=== PATIENT | female | born 1940 | race Caucasian/White ===

== ENCOUNTER 2017-03-21 00:50 | Inpatient (IN) ==
[2017-03-21] MEDS ORDERED: SODIUM CHLORIDE 0.9% 1,000 ML IV STA (01:37)
[2017-03-21] MEDS ORDERED: ALBUTEROL/IPRATROPIUM 3 ML NEB RESP TX STA (01:38)
[2017-03-21 02:39] LABS: Basophils # 0.1 10*3/uL (0.0-0.2); Basophils % 0.7 % (0.0-0.8); Hematocrit 22.6 VOL% (35.7-47.0); Immature Granulocytes % 0.9 %; Immature Granulocytes Absolute 0.08 #; Lymphocytes # 1.6 10*3/uL (1.4-4.0); Lymphocytes % 17.2 % (21.3-54.2); Mean Corpuscular HGB Conc 27.9 GM/DL (32-36); Mean Corpuscular Hemoglobin 19 PG (27-34); Mean Corpuscular Volume 66.7 FL (87-102); Mean Platelet Volume 9.4 FL (9.6-12.0); Monocytes # 1.3 10*3/uL (0.11-0.8); Monocytes % 14.5 % (1.7-12.7); NRBC # 0.34 10*3/uL; Neutrophils % 66.7 % (38.7-73.9); Platelet Count 625 T/CUMM (130-400); Red Blood Count 3.39 MC/CUMM (3.8-5.5); Red Cell Distribution Width 19.9 % (9.3-17.3)
[2017-03-21 02:50] LABS: INR 1.2; PT Patient Result 12.6 SECS; Partial Thromboplastin Time 26.8 SECS (0-40)
[2017-03-21 03:05] LABS: Hemoglobin 6.3 GM/DL (12.0-16.0)
[2017-03-21] MEDS ORDERED: SODIUM CHLORIDE 0.9% 1,000 ML IV PRN (03:05)
[2017-03-21 03:07] LABS: Albumin 3.3 G/DL (3.4-5.0); Bilirubin,Total 0.5 MG/DL (0.2-1.0); Calcium 8.4 MG/DL (8.5-10.1); Potassium 3.3 MMOL/L (3.5-5.1); Total Protein 7.5 G/DL (6.4-8.3)
[2017-03-21 03:09] LABS: Troponin I Only 0.11 NG/ML (0.00-0.045)
[2017-03-21] MEDS ORDERED: methylPREDNISolone SOD SUC 125 MG/2 ML VIAL IV STA (04:36)
[2017-03-21] MEDS ORDERED: ONDANSETRON 4 MG/2 ML VIAL IV PRN (04:53)
[2017-03-21] MEDS ORDERED: methylPREDNISolone SOD SUC 125 MG/2 ML VIAL ONE (05:10)
[2017-03-21] MEDS: SODIUM CHLORIDE 0.9% 1,000 ML IV SCH (06:40)
[2017-03-21] MEDS: methylPREDNISolone SOD SUC 40 MG/1 ML VIAL IV SCH ×3 (06:44→22:00)
[2017-03-21] MEDS: cefTRIAXone 1,000 MG in SYRINGE 1 EACH IV SCH (06:48)
[2017-03-21] MEDS: ALBUTEROL/IPRATROPIUM 3 ML NEB RESP TX SCH ×4 (07:09→19:43)
[2017-03-21] MEDS: AZITHROMYCIN INJ 500 MG in SODIUM CHLORIDE 0.9% 250 ML IV SCH (07:16)
[2017-03-21] MEDS: POTASSIUM CHLORIDE 20 MEQ TABLET PO PRN (09:27)
[2017-03-21] MEDS: FLUoxetine 20 MG CAPSULE PO SCH (09:28)
[2017-03-21] MEDS: PANTOPRAZOLE 40 MG VIAL IV SCH ×2 (09:28→22:00)
[2017-03-21] MEDS: ISOSORBIDE MONONITRATE 30 MG TABLET PO SCH (09:28)
[2017-03-21] MEDS: FLUTICASONE 50 MCG NASAL SPRAY 16 GM BOTTLE BOTH NARES SCH (09:28)
[2017-03-21] MEDS ORDERED: traMADol 50 MG TABLET PO PRN (09:33)
[2017-03-21] MEDS ORDERED: FUROSEMIDE 40 MG/4 ML VIAL IV ONE (10:47)
[2017-03-21 17:22] LABS: Hematocrit 26.1 VOL% (35.7-47.0); Hemoglobin 7.5 GM/DL (12.0-16.0)
[2017-03-21] MEDS ORDERED: CARVEDILOL 6.25 MG TABLET PO SCH (21:00)
[2017-03-21] MEDS ORDERED: BISACODYL 5 MG TABLET PO ONE (22:40)
[2017-03-21] MEDS ORDERED: POLYETHYLENE GLYCOL POWDER 255 GM BOTTLE PO ONE (22:40)
[2017-03-22] MEDS: ALBUTEROL/IPRATROPIUM 3 ML NEB RESP TX SCH ×6 (00:34→20:14)
[2017-03-22] MEDS ORDERED: MAGNESIUM CITRATE 300 ML BOTTLE PO ONE (04:00)
[2017-03-22 05:16] LABS: Basophils % 0.1 % (0.0-0.8); Hematocrit 27.8 VOL% (35.7-47.0); Hemoglobin 7.9 GM/DL (12.0-16.0); Immature Granulocytes % 0.9 %; Immature Granulocytes Absolute 0.06 #; Lymphocytes # 0.8 10*3/uL (1.4-4.0); Lymphocytes % 11.1 % (21.3-54.2); Mean Corpuscular HGB Conc 28.4 GM/DL (32-36); Mean Corpuscular Hemoglobin 20 PG (27-34); Mean Corpuscular Volume 70.2 FL (87-102); Mean Platelet Volume 9.8 FL (9.6-12.0); Monocytes # 0.9 10*3/uL (0.11-0.8); Monocytes % 13.2 % (1.7-12.7); Neutrophils % 74.7 % (38.7-73.9); Platelet Count 589 T/CUMM (130-400); Red Blood Count 3.96 MC/CUMM (3.8-5.5); Red Cell Distribution Width 21.2 % (9.3-17.3); White Blood Count 6.7 T/CUMM (4-12)
[2017-03-22] MEDS: AZITHROMYCIN INJ 500 MG in SODIUM CHLORIDE 0.9% 250 ML IV SCH (05:36)
[2017-03-22] MEDS: methylPREDNISolone SOD SUC 40 MG/1 ML VIAL IV SCH ×3 (05:36→22:24)
[2017-03-22 05:45] LABS: Albumin 3.1 G/DL (3.4-5.0); Bilirubin,Total 0.5 MG/DL (0.2-1.0); Calcium 8.3 MG/DL (8.5-10.1); Ferritin 34.5 ng/ml (8-252); Potassium 3.5 MMOL/L (3.5-5.1); Total Protein 7.7 G/DL (6.4-8.3)
[2017-03-22 05:53] LABS: Folate 14.8 NG/ML (5.4-24.0); Giant Platelets Few; Hypochromasia 1+; Lymphocytes 6 % (20-55); Nucleated Red Blood Cells 14 (0-5); Platelet Estimate Increased; Segmented Neutrophils 83 % (50-85); Total Cells Counted 100; Vitamin B12 705 PG/ML (211-911)
[2017-03-22 05:54] LABS: Burr Cells Slight; Ovalocytes Slight
[2017-03-22 05:56] LABS: Calcium 8.6 MG/DL (8.5-10.1); Osmolality,Calculated 275.8 MOS/KG (273-304); Potassium 3.5 MMOL/L (3.5-5.1)
[2017-03-22] MEDS: cefTRIAXone 1,000 MG in SYRINGE 1 EACH IV SCH (07:25)
[2017-03-22 07:50] LABS: Sedimentation Rate-Westergren 60 MM/HR (0-30)
[2017-03-22 08:20] LABS: Hemoglobin A1 (Alkaline) 97.8 % (96.5-98.5); Hemoglobin A2 (Alkaline) 2.2 % (1.5-3.5)
[2017-03-22] MEDS ORDERED: PROPOFOL 200 MG/20 ML VIAL IV ONE (08:30)
[2017-03-22] MEDS ORDERED: ETOMIDATE 20 MG/10 ML VIAL IV ONE (08:30)
[2017-03-22] MEDS ORDERED: LIDOCAINE 2% 5 ML VIAL ONE (08:30)
[2017-03-22] MEDS ORDERED: NEBIVOLOL 10 MG TABLET PO SCH (09:00)
[2017-03-22] MEDS: FLUoxetine 20 MG CAPSULE PO SCH ×2 (12:54→12:56)
[2017-03-22] MEDS: ISOSORBIDE MONONITRATE 30 MG TABLET PO SCH (12:54)
[2017-03-22] MEDS: PANTOPRAZOLE 40 MG VIAL IV SCH ×2 (12:54→22:20)
[2017-03-22] MEDS: FLUTICASONE 50 MCG NASAL SPRAY 16 GM BOTTLE BOTH NARES SCH (12:56)
[2017-03-23] MEDS: ALBUTEROL/IPRATROPIUM 3 ML NEB RESP TX SCH ×6 (01:10→20:00)
[2017-03-23] MEDS: methylPREDNISolone SOD SUC 40 MG/1 ML VIAL IV SCH ×3 (04:09→20:14)
[2017-03-23 04:55] LABS: Basophils % 0.1 % (0.0-0.8); Hematocrit 25.8 VOL% (35.7-47.0); Hemoglobin 7.5 GM/DL (12.0-16.0); Immature Granulocytes % 0.9 %; Immature Granulocytes Absolute 0.11 #; Lymphocytes # 0.5 10*3/uL (1.4-4.0); Lymphocytes % 3.7 % (21.3-54.2); Mean Corpuscular HGB Conc 29.1 GM/DL (32-36); Mean Corpuscular Hemoglobin 20 PG (27-34); Mean Corpuscular Volume 69.2 FL (87-102); Mean Platelet Volume 9.7 FL (9.6-12.0); Monocytes # 1.1 10*3/uL (0.11-0.8); Monocytes % 8.8 % (1.7-12.7); NRBC # 0.96 10*3/uL; Neutrophils # 10.5 10*3/uL (1.4-7.4); Neutrophils % 86.5 % (38.7-73.9); Platelet Count 547 T/CUMM (130-400); Red Blood Count 3.73 MC/CUMM (3.8-5.5); Red Cell Distribution Width 21.2 % (9.3-17.3); White Blood Count 12.1 T/CUMM (4-12)
[2017-03-23 05:16] LABS: Calcium 8.6 MG/DL (8.5-10.1); Magnesium 2.4 MG/DL (1.8-2.4); Osmolality,Calculated 276.7 MOS/KG (273-304); Potassium 3.1 MMOL/L (3.5-5.1)
[2017-03-23] MEDS: SODIUM CHLORIDE 0.9% 1,000 ML IV SCH (05:52)
[2017-03-23] MEDS: cefTRIAXone 1,000 MG in SYRINGE 1 EACH IV SCH (05:54)
[2017-03-23] MEDS: AZITHROMYCIN INJ 500 MG in SODIUM CHLORIDE 0.9% 250 ML IV SCH (05:57)
[2017-03-23 07:18] LABS: Band Neutrophils 1 % (0-10); Lymphocytes 4 % (20-55); Nucleated Red Blood Cells 8 (0-5); Segmented Neutrophils 92 % (50-85); Total Cells Counted 100
[2017-03-23 07:21] LABS: Acanthocytes Few; Hypochromasia 1+; Platelet Estimate Increased
[2017-03-23 07:22] LABS: Anisocytosis 1+; Microcytosis 1+; Target Cells Few
[2017-03-23] MEDS ORDERED: SODIUM CHLORIDE 0.9% 1,000 ML IV PRN (08:05)
[2017-03-23] MEDS ORDERED: POTASSIUM CHLORIDE 20 MEQ TABLET PO ONE (08:05)
[2017-03-23] MEDS: NEBIVOLOL 10 MG TABLET PO SCH (09:24)
[2017-03-23] MEDS: FLUoxetine 20 MG CAPSULE PO SCH ×2 (09:25→10:22)
[2017-03-23] MEDS: FLUTICASONE 50 MCG NASAL SPRAY 16 GM BOTTLE BOTH NARES SCH (09:25)
[2017-03-23] MEDS: PANTOPRAZOLE 40 MG VIAL IV SCH (09:25)
[2017-03-23] MEDS: SPIRONOLACTONE 25 MG TABLET PO SCH (09:25)
[2017-03-23] MEDS: ISOSORBIDE MONONITRATE 30 MG TABLET PO SCH (09:25)
[2017-03-23] MEDS: LORazepam 0.5 MG TABLET PO PRN (10:49)
[2017-03-23] MEDS ORDERED: FUROSEMIDE 40 MG/4 ML VIAL IV ONE ×2 (11:14→17:24)
[2017-03-23] MEDS: POTASSIUM CHLORIDE 20 MEQ TABLET PO PRN ×3 (12:25→17:50)
[2017-03-23] MEDS ORDERED: hydrALAZINE 20 MG/1 ML VIAL IV PRN (12:32)
[2017-03-23] MEDS: amLODIPine 5 MG TABLET PO SCH (14:51)
[2017-03-23] MEDS ORDERED: methylPREDNISolone SOD SUC 125 MG/2 ML VIAL IV ONE (17:09)
[2017-03-23 17:14] LABS: ABG Base Excess 4.1 MMOL/L (-2.5-2.5); ABG Oxygen Saturation 96.9 % (95-100); ABG PCO2 45.7 MM HG (35-48); ABG PH 7.421 (7.35-7.45); ABG PO2 98.7 MM HG (80-95); ABG TCO2 30.4 MMOL/L (23-27)
[2017-03-23 20:19] LABS: Hematocrit 35.2 VOL% (35.7-47.0)
[2017-03-23 20:34] LABS: Hemoglobin 10.3 GM/DL (12.0-16.0)
[2017-03-24] MEDS: ALBUTEROL/IPRATROPIUM 3 ML NEB RESP TX SCH ×6 (00:26→19:21)
[2017-03-24 04:01] LABS: Basophils % 0.1 % (0.0-0.8); Hematocrit 35.4 VOL% (35.7-47.0); Hemoglobin 10.2 GM/DL (12.0-16.0); Immature Granulocytes % 1.1 %; Immature Granulocytes Absolute 0.11 #; Lymphocytes # 0.8 10*3/uL (1.4-4.0); Lymphocytes % 7.2 % (21.3-54.2); Mean Corpuscular HGB Conc 28.8 GM/DL (32-36); Mean Corpuscular Hemoglobin 21 PG (27-34); Mean Corpuscular Volume 73.9 FL (87-102); Mean Platelet Volume 9.7 FL (9.6-12.0); Monocytes # 0.8 10*3/uL (0.11-0.8); Monocytes % 7.4 % (1.7-12.7); NRBC # 1.01 10*3/uL; Neutrophils # 8.8 10*3/uL (1.4-7.4); Neutrophils % 84.2 % (38.7-73.9); Platelet Count 522 T/CUMM (130-400); Red Blood Count 4.79 MC/CUMM (3.8-5.5); Red Cell Distribution Width 24.1 % (9.3-17.3); White Blood Count 10.5 T/CUMM (4-12)
[2017-03-24 04:25] LABS: Hypochromasia 2+
[2017-03-24 04:26] LABS: Poikilocytosis 1+
[2017-03-24 04:50] LABS: Calcium 9.2 MG/DL (8.5-10.1); Magnesium 2.3 MG/DL (1.8-2.4); Osmolality,Calculated 279.5 MOS/KG (273-304); Potassium 3.7 MMOL/L (3.5-5.1)
[2017-03-24] MEDS: methylPREDNISolone SOD SUC 40 MG/1 ML VIAL IV SCH ×3 (04:56→21:57)
[2017-03-24] MEDS: cefTRIAXone 1,000 MG in SYRINGE 1 EACH IV SCH (05:03)
[2017-03-24] MEDS: AZITHROMYCIN INJ 500 MG in SODIUM CHLORIDE 0.9% 250 ML IV SCH (05:04)
[2017-03-24 05:22] LABS: Band Neutrophils 21 % (0-10); Lymphocytes 6 % (20-55); Metamyelocytes 1 %; Nucleated Red Blood Cells 14 (0-5); Segmented Neutrophils 68 % (50-85); Total Cells Counted 100
[2017-03-24 05:23] LABS: Anisocytosis 2+
[2017-03-24 05:24] LABS: Target Cells 1+
[2017-03-24] MEDS ORDERED: FUROSEMIDE 40 MG/4 ML VIAL IV ONE (09:14)
[2017-03-24] MEDS: metOLazone 2.5 MG TABLET PO SCH (09:40)
[2017-03-24] MEDS: NEBIVOLOL 10 MG TABLET PO SCH (09:41)
[2017-03-24] MEDS: PANTOPRAZOLE 40 MG TABLET PO SCH (09:41)
[2017-03-24] MEDS: ISOSORBIDE MONONITRATE 30 MG TABLET PO SCH (09:41)
[2017-03-24] MEDS: FUROSEMIDE 40 MG TABLET PO SCH (09:41)
[2017-03-24] MEDS: FLUoxetine 20 MG CAPSULE PO SCH (09:41)
[2017-03-24] MEDS: SPIRONOLACTONE 25 MG TABLET PO SCH (09:41)
[2017-03-24] MEDS: amLODIPine 5 MG TABLET PO SCH (09:41)
[2017-03-24] MEDS: FLUTICASONE 50 MCG NASAL SPRAY 16 GM BOTTLE BOTH NARES SCH (09:42)
[2017-03-24] MEDS: NYSTATIN/TRIAMCINOLONE CREAM 15 GM TUBE TOP SCH ×2 (14:35→22:10)
[2017-03-24] MEDS: LORazepam 0.5 MG TABLET PO PRN (17:18)
[2017-03-25] MEDS: ALBUTEROL/IPRATROPIUM 3 ML NEB RESP TX SCH ×6 (00:15→19:00)
[2017-03-25 04:54] LABS: Basophils % 0.1 % (0.0-0.8); Hematocrit 35.9 VOL% (35.7-47.0); Hemoglobin 10.7 GM/DL (12.0-16.0); Immature Granulocytes % 0.8 %; Immature Granulocytes Absolute 0.09 #; Lymphocytes # 0.8 10*3/uL (1.4-4.0); Lymphocytes % 6.4 % (21.3-54.2); Mean Corpuscular HGB Conc 29.8 GM/DL (32-36); Mean Corpuscular Hemoglobin 21 PG (27-34); Mean Corpuscular Volume 71.9 FL (87-102); Mean Platelet Volume 9.7 FL (9.6-12.0); Monocytes % 8.1 % (1.7-12.7); NRBC # 0.77 10*3/uL; Neutrophils % 84.6 % (38.7-73.9); Platelet Count 548 T/CUMM (130-400); Red Blood Count 4.99 MC/CUMM (3.8-5.5); Red Cell Distribution Width 24.2 % (9.3-17.3); White Blood Count 11.8 T/CUMM (4-12)
[2017-03-25 05:21] LABS: Target Cells Few
[2017-03-25 05:22] LABS: Acanthocytes Few; Anisocytosis 1+; Hypochromasia 1+; Microcytosis 1+; Spherocytes Slight
[2017-03-25 05:23] LABS: Platelet Estimate Increased
[2017-03-25 05:30] LABS: Calcium 9.6 MG/DL (8.5-10.1); Osmolality,Calculated 268.4 MOS/KG (273-304); Potassium 3.1 MMOL/L (3.5-5.1)
[2017-03-25] MEDS: methylPREDNISolone SOD SUC 40 MG/1 ML VIAL IV SCH ×3 (06:26→20:56)
[2017-03-25] MEDS: cefTRIAXone 1,000 MG in SYRINGE 1 EACH IV SCH (07:00)
[2017-03-25] MEDS: AZITHROMYCIN INJ 500 MG in SODIUM CHLORIDE 0.9% 250 ML IV SCH (07:03)
[2017-03-25] MEDS: SPIRONOLACTONE 25 MG TABLET PO SCH (09:34)
[2017-03-25] MEDS: ISOSORBIDE MONONITRATE 30 MG TABLET PO SCH (09:34)
[2017-03-25] MEDS: PANTOPRAZOLE 40 MG TABLET PO SCH (09:34)
[2017-03-25] MEDS: NEBIVOLOL 10 MG TABLET PO SCH (09:34)
[2017-03-25] MEDS: FLUoxetine 20 MG CAPSULE PO SCH (09:34)
[2017-03-25] MEDS: FUROSEMIDE 40 MG TABLET PO SCH (09:35)
[2017-03-25] MEDS: amLODIPine 5 MG TABLET PO SCH (09:35)
[2017-03-25] MEDS: metOLazone 2.5 MG TABLET PO SCH (09:35)
[2017-03-25] MEDS: FLUTICASONE 50 MCG NASAL SPRAY 16 GM BOTTLE BOTH NARES SCH (09:35)
[2017-03-25] MEDS: LORazepam 0.5 MG TABLET PO PRN (09:40)
[2017-03-25] MEDS: POTASSIUM CHLORIDE 20 MEQ TABLET PO PRN ×5 (09:43→18:00)
[2017-03-25] MEDS: NYSTATIN/TRIAMCINOLONE CREAM 15 GM TUBE TOP SCH ×2 (09:44→20:58)
[2017-03-26] MEDS: ALBUTEROL/IPRATROPIUM 3 ML NEB RESP TX SCH ×6 (00:20→19:20)
[2017-03-26 05:25] LABS: Basophils % 0.1 % (0.0-0.8); Hematocrit 36.6 VOL% (35.7-47.0); Immature Granulocytes % 0.6 %; Immature Granulocytes Absolute 0.06 #; Lymphocytes # 0.5 10*3/uL (1.4-4.0); Lymphocytes % 5.4 % (21.3-54.2); Mean Corpuscular HGB Conc 30.1 GM/DL (32-36); Mean Corpuscular Hemoglobin 21 PG (27-34); Mean Corpuscular Volume 71.1 FL (87-102); Mean Platelet Volume 9.6 FL (9.6-12.0); Monocytes # 0.8 10*3/uL (0.11-0.8); Monocytes % 8.9 % (1.7-12.7); NRBC # 0.42 10*3/uL; Neutrophils # 7.9 10*3/uL (1.4-7.4); Platelet Count 576 T/CUMM (130-400); Red Blood Count 5.15 MC/CUMM (3.8-5.5); Red Cell Distribution Width 24.7 % (9.3-17.3); White Blood Count 9.3 T/CUMM (4-12)
[2017-03-26 05:46] LABS: Giant Platelets Few; Hypochromasia 1+; Ovalocytes Slight; Platelet Estimate Increased
[2017-03-26 05:47] LABS: Microcytosis Slight
[2017-03-26 05:57] LABS: Calcium 9.1 MG/DL (8.5-10.1); Osmolality,Calculated 265.7 MOS/KG (273-304); Potassium 3.3 MMOL/L (3.5-5.1)
[2017-03-26] MEDS: methylPREDNISolone SOD SUC 40 MG/1 ML VIAL IV SCH ×3 (05:58→20:17)
[2017-03-26] MEDS: cefTRIAXone 1,000 MG in SYRINGE 1 EACH IV SCH (06:02)
[2017-03-26] MEDS: AZITHROMYCIN INJ 500 MG in SODIUM CHLORIDE 0.9% 250 ML IV SCH (06:05)
[2017-03-26] MEDS: POTASSIUM CHLORIDE 20 MEQ TABLET PO PRN ×3 (08:26→13:07)
[2017-03-26] MEDS: SPIRONOLACTONE 25 MG TABLET PO SCH (08:26)
[2017-03-26] MEDS: amLODIPine 5 MG TABLET PO SCH (08:26)
[2017-03-26] MEDS: FUROSEMIDE 40 MG TABLET PO SCH (08:26)
[2017-03-26] MEDS: ISOSORBIDE MONONITRATE 30 MG TABLET PO SCH (08:26)
[2017-03-26] MEDS: FLUoxetine 20 MG CAPSULE PO SCH (08:26)
[2017-03-26] MEDS: LORazepam 0.5 MG TABLET PO PRN (08:26)
[2017-03-26] MEDS: metOLazone 2.5 MG TABLET PO SCH (08:26)
[2017-03-26] MEDS: NEBIVOLOL 10 MG TABLET PO SCH (08:26)
[2017-03-26] MEDS: PANTOPRAZOLE 40 MG TABLET PO SCH (08:26)
[2017-03-26] MEDS: FLUTICASONE 50 MCG NASAL SPRAY 16 GM BOTTLE BOTH NARES SCH (08:29)
[2017-03-26] MEDS: NYSTATIN/TRIAMCINOLONE CREAM 15 GM TUBE TOP SCH ×2 (08:30→20:19)
[2017-03-26] MEDS: acetaZOLAMIDE 250 MG TABLET PO SCH ×2 (15:41→20:19)
[2017-03-27] MEDS: ALBUTEROL/IPRATROPIUM 3 ML NEB RESP TX SCH ×6 (00:24→19:57)
[2017-03-27 06:28] LABS: Magnesium 2.2 MG/DL (1.8-2.4); Osmolality,Calculated 264.9 MOS/KG (273-304); Potassium 3.3 MMOL/L (3.5-5.1)
[2017-03-27] MEDS: methylPREDNISolone SOD SUC 40 MG/1 ML VIAL IV SCH ×3 (06:37→21:31)
[2017-03-27] MEDS: POTASSIUM CHLORIDE 20 MEQ TABLET PO PRN ×3 (06:37→12:08)
[2017-03-27] MEDS: cefTRIAXone 1,000 MG in SYRINGE 1 EACH IV SCH (06:39)
[2017-03-27] MEDS: AZITHROMYCIN INJ 500 MG in SODIUM CHLORIDE 0.9% 250 ML IV SCH (06:43)
[2017-03-27] MEDS: amLODIPine 5 MG TABLET PO SCH (09:21)
[2017-03-27] MEDS: SPIRONOLACTONE 25 MG TABLET PO SCH (09:21)
[2017-03-27] MEDS: FLUoxetine 20 MG CAPSULE PO SCH (09:21)
[2017-03-27] MEDS: acetaZOLAMIDE 250 MG TABLET PO SCH ×2 (09:21→21:31)
[2017-03-27] MEDS: NEBIVOLOL 10 MG TABLET PO SCH (09:21)
[2017-03-27] MEDS: ISOSORBIDE MONONITRATE 30 MG TABLET PO SCH (09:21)
[2017-03-27] MEDS: FUROSEMIDE 40 MG TABLET PO SCH (09:22)
[2017-03-27] MEDS: PANTOPRAZOLE 40 MG TABLET PO SCH (09:22)
[2017-03-27] MEDS: LORazepam 0.5 MG TABLET PO PRN (09:22)
[2017-03-27] MEDS: FLUTICASONE 50 MCG NASAL SPRAY 16 GM BOTTLE BOTH NARES SCH (10:22)
[2017-03-27] MEDS: NYSTATIN/TRIAMCINOLONE CREAM 15 GM TUBE TOP SCH ×2 (10:22→21:32)
[2017-03-28] MEDS: ALBUTEROL/IPRATROPIUM 3 ML NEB RESP TX SCH ×7 (00:33→23:06)
[2017-03-28 05:46] LABS: Calcium 9.3 MG/DL (8.5-10.1); Magnesium 2.2 MG/DL (1.8-2.4); Osmolality,Calculated 266.9 MOS/KG (273-304); Potassium 3.7 MMOL/L (3.5-5.1)
[2017-03-28] MEDS: cefTRIAXone 1,000 MG in SYRINGE 1 EACH IV SCH (06:05)
[2017-03-28] MEDS: AZITHROMYCIN INJ 500 MG in SODIUM CHLORIDE 0.9% 250 ML IV SCH (06:05)
[2017-03-28 06:06] LABS: Basophils % 0.1 % (0.0-0.8); Hematocrit 37.3 VOL% (35.7-47.0); Hemoglobin 11.2 GM/DL (12.0-16.0); Immature Granulocytes % 0.7 %; Immature Granulocytes Absolute 0.08 #; Lymphocytes # 0.3 10*3/uL (1.4-4.0); Lymphocytes % 2.6 % (21.3-54.2); Mean Corpuscular Hemoglobin 22 PG (27-34); Mean Platelet Volume 9.6 FL (9.6-12.0); Monocytes % 8.5 % (1.7-12.7); NRBC # 0.17 10*3/uL; Neutrophils # 10.7 10*3/uL (1.4-7.4); Neutrophils % 88.1 % (38.7-73.9); Platelet Count 573 T/CUMM (130-400); Red Blood Count 5.18 MC/CUMM (3.8-5.5); Red Cell Distribution Width 25.2 % (9.3-17.3); White Blood Count 12.2 T/CUMM (4-12)
[2017-03-28] MEDS: methylPREDNISolone SOD SUC 40 MG/1 ML VIAL IV SCH ×2 (06:06→12:15)
[2017-03-28 06:23] LABS: Band Neutrophils 1 % (0-10); Hypochromasia 2+; Lymphocytes 1 % (20-55); Microcytosis 1+; Nucleated Red Blood Cells 3 (0-5); Segmented Neutrophils 96 % (50-85); Total Cells Counted 100
[2017-03-28 06:24] LABS: Ovalocytes Slight; Platelet Estimate Increased; Target Cells Slight
[2017-03-28] MEDS: SPIRONOLACTONE 25 MG TABLET PO SCH (10:16)
[2017-03-28] MEDS: NEBIVOLOL 10 MG TABLET PO SCH (10:16)
[2017-03-28] MEDS: PANTOPRAZOLE 40 MG TABLET PO SCH (10:17)
[2017-03-28] MEDS: FUROSEMIDE 40 MG TABLET PO SCH (10:17)
[2017-03-28] MEDS: acetaZOLAMIDE 250 MG TABLET PO SCH ×2 (10:17→22:21)
[2017-03-28] MEDS: FLUoxetine 20 MG CAPSULE PO SCH (10:17)
[2017-03-28] MEDS: amLODIPine 5 MG TABLET PO SCH (10:22)
[2017-03-28] MEDS: ISOSORBIDE MONONITRATE 30 MG TABLET PO SCH (10:22)
[2017-03-28] MEDS: FLUTICASONE 50 MCG NASAL SPRAY 16 GM BOTTLE BOTH NARES SCH (10:23)
[2017-03-28] MEDS: NYSTATIN/TRIAMCINOLONE CREAM 15 GM TUBE TOP SCH ×2 (10:23→22:24)
[2017-03-29] MEDS: methylPREDNISolone SOD SUC 40 MG/1 ML VIAL IV SCH ×3 (00:30→23:51)
[2017-03-29] MEDS: ALBUTEROL/IPRATROPIUM 3 ML NEB RESP TX SCH ×6 (02:46→23:27)
[2017-03-29 05:40] LABS: Calcium 9.5 MG/DL (8.5-10.1); Magnesium 2.2 MG/DL (1.8-2.4); Osmolality,Calculated 267.8 MOS/KG (273-304); Potassium 3.5 MMOL/L (3.5-5.1)
[2017-03-29 05:47] LABS: Basophils % 0.1 % (0.0-0.8); Hematocrit 37.3 VOL% (35.7-47.0); Hemoglobin 11.2 GM/DL (12.0-16.0); Immature Granulocytes % 0.8 %; Immature Granulocytes Absolute 0.12 #; Lymphocytes # 0.6 10*3/uL (1.4-4.0); Lymphocytes % 3.5 % (21.3-54.2); Mean Corpuscular Hemoglobin 22 PG (27-34); Mean Corpuscular Volume 71.6 FL (87-102); Mean Platelet Volume 10.6 FL (9.6-12.0); Monocytes # 2.3 10*3/uL (0.11-0.8); NRBC # 0.15 10*3/uL; Neutrophils # 12.6 10*3/uL (1.4-7.4); Neutrophils % 80.6 % (38.7-73.9); Platelet Count 289 T/CUMM (130-400); Red Blood Count 5.21 MC/CUMM (3.8-5.5); White Blood Count 15.6 T/CUMM (4-12)
[2017-03-29] MEDS ORDERED: DIAZEPAM 5 MG TABLET PO ONE (06:00)
[2017-03-29] MEDS ORDERED: FAMOTIDINE 20 MG TABLET PO ONE (06:00)
[2017-03-29] MEDS: cefTRIAXone 1,000 MG in SYRINGE 1 EACH IV SCH (06:26)
[2017-03-29] MEDS: AZITHROMYCIN INJ 500 MG in SODIUM CHLORIDE 0.9% 250 ML IV SCH (06:27)
[2017-03-29] MEDS ORDERED: cefOXitin 2,000 MG in SYRINGE 1 EACH IV ONE (06:30)
[2017-03-29 06:35] LABS: Anisocytosis 1+; Band Neutrophils 1 % (0-10); Lymphocytes 5 % (20-55); Microcytosis 1+; Platelet Estimate Normal; Segmented Neutrophils 90 % (50-85); Total Cells Counted 100
[2017-03-29] MEDS ORDERED: LACTATED RINGERS 1,000 ML IV SCH (08:00)
[2017-03-29] MEDS: FUROSEMIDE 40 MG TABLET PO SCH (09:00)
[2017-03-29] MEDS: NEBIVOLOL 10 MG TABLET PO SCH (09:00)
[2017-03-29] MEDS: PANTOPRAZOLE 40 MG TABLET PO SCH (09:00)
[2017-03-29] MEDS: FLUoxetine 20 MG CAPSULE PO SCH (09:00)
[2017-03-29] MEDS: SPIRONOLACTONE 25 MG TABLET PO SCH (09:00)
[2017-03-29] MEDS: ISOSORBIDE MONONITRATE 30 MG TABLET PO SCH (09:00)
[2017-03-29] MEDS: acetaZOLAMIDE 250 MG TABLET PO SCH ×2 (09:00→21:22)
[2017-03-29] MEDS: amLODIPine 5 MG TABLET PO SCH (09:00)
[2017-03-29] MEDS ORDERED: SUGAMMADEX 200 MG/2 ML VIAL IV ONE (10:22)
[2017-03-29] MEDS ORDERED: BUPIVACAINE 0.25% 50 ML VIAL ONE (10:36)
[2017-03-29] MEDS ORDERED: EPINEPHrine 1 MG/ML VIAL ONE (10:36)
[2017-03-29] MEDS ORDERED: MORPHINE 2 MG/1 ML SYRINGE IV PRN (10:53)
[2017-03-29] MEDS ORDERED: DESFLURANE 1 UNIT/15 MINUTE INH ONE (11:02)
[2017-03-29] MEDS ORDERED: PROPOFOL 200 MG/20 ML VIAL IV ONE (11:02)
[2017-03-29] MEDS ORDERED: ONDANSETRON 4 MG/2 ML VIAL ONE (11:03)
[2017-03-29] MEDS ORDERED: ROCURONIUM 100 MG/10 ML VIAL IV ONE (11:03)
[2017-03-29] MEDS ORDERED: fentaNYL 100 MCG/2 ML VIAL ONE (11:03)
[2017-03-29] MEDS ORDERED: ACETAMINOPHEN 1,000 MG/100 ML VIAL IV ONE (11:03)
[2017-03-29] MEDS ORDERED: LACTATED RINGERS 1,000 ML IV ONE (11:03)
[2017-03-29 11:18] LABS: Apearance,Urine CLEAR (Clear); Bilirubin,Urine Negative (Negative); Blood, Urine Negative (Negative); Glucose,Urine (UA) Negative (Negative); Ketones,Urine Negative (Negative); Nitrite,Urine Negative (Negative); Protein,Urine Negative; Squamous Epithelial Cell,Urine Occasional /HPF (0-10); Urine Color Straw (Yellow); Urine Specific Gravity 1.008 (1.001-1.035); Urine Urobilinogen < 2.0 EU/DL (0.2-1.0); WBC,Urine 1 /HPF (0-6)
[2017-03-29] MEDS ORDERED: DEXAMETHASONE 4 MG/1 ML VIAL IV ONE (11:31)
[2017-03-29] MEDS: DEXTROSE 5% LACTATED RINGERS 1,000 ML IV SCH ×2 (12:41→21:22)
[2017-03-29 12:52] LABS: Hematocrit 37.2 VOL% (35.7-47.0)
[2017-03-29] MEDS: FLUTICASONE 50 MCG NASAL SPRAY 16 GM BOTTLE BOTH NARES SCH (13:23)
[2017-03-29] MEDS: NYSTATIN/TRIAMCINOLONE CREAM 15 GM TUBE TOP SCH ×2 (13:23→21:22)
[2017-03-29] MEDS ORDERED: cefOXitin 2,000 MG in SYRINGE 1 EACH IV SCH (14:56)
[2017-03-29] MEDS: cefOXitin 2,000 MG in SYRINGE 1 EACH IV SCH ×2 (15:17→21:21)
[2017-03-29 19:13] LABS: Hematocrit 36.9 VOL% (35.7-47.0); Hemoglobin 11.1 GM/DL (12.0-16.0)
[2017-03-30 02:23] LABS: Basophils % 0.1 % (0.0-0.8); Hemoglobin 10.7 GM/DL (12.0-16.0); Immature Granulocytes % 0.9 %; Immature Granulocytes Absolute 0.18 #; Lymphocytes # 0.2 10*3/uL (1.4-4.0); Lymphocytes % 1.1 % (21.3-54.2); Mean Corpuscular HGB Conc 29.4 GM/DL (32-36); Mean Corpuscular Hemoglobin 21 PG (27-34); Mean Corpuscular Volume 72.7 FL (87-102); Mean Platelet Volume 9.5 FL (9.6-12.0); Monocytes # 1.9 10*3/uL (0.11-0.8); Monocytes % 9.7 % (1.7-12.7); NRBC # 0.11 10*3/uL; Neutrophils # 16.8 10*3/uL (1.4-7.4); Neutrophils % 88.2 % (38.7-73.9); Platelet Count 531 T/CUMM (130-400); Red Blood Count 5.01 MC/CUMM (3.8-5.5); Red Cell Distribution Width 25.2 % (9.3-17.3); White Blood Count 19.1 T/CUMM (4-12)
[2017-03-30 02:42] LABS: Hematocrit 35.6 VOL% (35.7-47.0)
[2017-03-30 03:10] LABS: Calcium 8.8 MG/DL (8.5-10.1); Magnesium 1.9 MG/DL (1.8-2.4); Osmolality,Calculated 269.5 MOS/KG (273-304); Potassium 3.8 MMOL/L (3.5-5.1)
[2017-03-30 03:14] LABS: Albumin 2.7 G/DL (3.4-5.0); Bilirubin,Total 0.7 MG/DL (0.2-1.0); Osmolality,Calculated 267.7 MOS/KG (273-304); Potassium 3.8 MMOL/L (3.5-5.1); Total Protein 6.3 G/DL (6.4-8.3)
[2017-03-30] MEDS: ALBUTEROL/IPRATROPIUM 3 ML NEB RESP TX SCH ×6 (03:29→23:16)
[2017-03-30 03:51] LABS: Band Neutrophils 2 % (0-10); Lymphocytes 3 % (20-55); Metamyelocytes 1 %; Myelocytes 1 %; Segmented Neutrophils 90 % (50-85); Total Cells Counted 100
[2017-03-30 04:09] LABS: Anisocytosis 1+; Hypochromasia 1+; Target Cells 1+
[2017-03-30 04:11] LABS: Acanthocytes Few; Platelet Estimate Increased
[2017-03-30] MEDS: cefOXitin 2,000 MG in SYRINGE 1 EACH IV SCH (04:23)
[2017-03-30] MEDS: ENOXAPARIN 40 MG/0.4 ML SYRINGE SUBCUT SCH (04:23)
[2017-03-30] MEDS: DEXTROSE 5% LACTATED RINGERS 1,000 ML IV SCH ×3 (04:23→21:40)
[2017-03-30 04:33] LABS: ABG Base Excess 4.4 MMOL/L (-2.5-2.5); ABG HCO3 28.3 MMOL/L (20-26); ABG Oxygen Saturation 96.4 % (95-100); ABG PCO2 44.8 MM HG (35-48); ABG PH 7.425 (7.35-7.45); ABG PO2 84.4 MM HG (80-95); ABG TCO2 26.3 MMOL/L (23-27); Allen Test Positive
[2017-03-30] MEDS: cefTRIAXone 1,000 MG in SYRINGE 1 EACH IV SCH (06:12)
[2017-03-30] MEDS: AZITHROMYCIN INJ 500 MG in SODIUM CHLORIDE 0.9% 250 ML IV SCH (06:18)
[2017-03-30] MEDS: SPIRONOLACTONE 25 MG TABLET PO SCH (08:46)
[2017-03-30] MEDS: acetaZOLAMIDE 250 MG TABLET PO SCH ×2 (08:47→21:40)
[2017-03-30] MEDS: NEBIVOLOL 10 MG TABLET PO SCH (08:47)
[2017-03-30] MEDS: ISOSORBIDE MONONITRATE 30 MG TABLET PO SCH (08:47)
[2017-03-30] MEDS: FLUoxetine 20 MG CAPSULE PO SCH (08:48)
[2017-03-30] MEDS: FUROSEMIDE 40 MG TABLET PO SCH (08:48)
[2017-03-30] MEDS: amLODIPine 5 MG TABLET PO SCH (08:48)
[2017-03-30] MEDS: PANTOPRAZOLE 40 MG TABLET PO SCH (08:48)
[2017-03-30] MEDS: NYSTATIN/TRIAMCINOLONE CREAM 15 GM TUBE TOP SCH ×2 (09:02→21:40)
[2017-03-30] MEDS: FLUTICASONE 50 MCG NASAL SPRAY 16 GM BOTTLE BOTH NARES SCH (09:02)
[2017-03-30] MEDS: methylPREDNISolone SOD SUC 40 MG/1 ML VIAL IV SCH (11:49)
[2017-03-31] MEDS: methylPREDNISolone SOD SUC 40 MG/1 ML VIAL IV SCH ×2 (01:33→11:43)
[2017-03-31] MEDS: ALBUTEROL/IPRATROPIUM 3 ML NEB RESP TX SCH ×5 (02:48→19:54)
[2017-03-31 05:16] LABS: Basophils % 0.1 % (0.0-0.8); Hematocrit 32.2 VOL% (35.7-47.0); Hemoglobin 9.5 GM/DL (12.0-16.0); Immature Granulocytes % 1.6 %; Immature Granulocytes Absolute 0.24 #; Lymphocytes # 0.3 10*3/uL (1.4-4.0); Lymphocytes % 1.9 % (21.3-54.2); Mean Corpuscular HGB Conc 29.5 GM/DL (32-36); Mean Corpuscular Hemoglobin 21 PG (27-34); Mean Corpuscular Volume 72.5 FL (87-102); Mean Platelet Volume 9.8 FL (9.6-12.0); Monocytes # 1.3 10*3/uL (0.11-0.8); Monocytes % 8.7 % (1.7-12.7); NRBC # 0.09 10*3/uL; Neutrophils # 12.9 10*3/uL (1.4-7.4); Neutrophils % 87.7 % (38.7-73.9); Platelet Count 454 T/CUMM (130-400); Red Blood Count 4.44 MC/CUMM (3.8-5.5); Red Cell Distribution Width 25.2 % (9.3-17.3); White Blood Count 14.7 T/CUMM (4-12)
[2017-03-31] MEDS: DEXTROSE 5% LACTATED RINGERS 1,000 ML IV SCH ×2 (05:32→13:12)
[2017-03-31] MEDS: ENOXAPARIN 40 MG/0.4 ML SYRINGE SUBCUT SCH (05:32)
[2017-03-31] MEDS: cefTRIAXone 1,000 MG in SYRINGE 1 EACH IV SCH (05:32)
[2017-03-31 05:47] LABS: Calcium 8.7 MG/DL (8.5-10.1); Magnesium 1.7 MG/DL (1.8-2.4); Osmolality,Calculated 269.4 MOS/KG (273-304); Potassium 3.8 MMOL/L (3.5-5.1)
[2017-03-31 06:11] LABS: Giant Platelets Few; Hypochromasia 1+; Lymphocytes 1 % (20-55); Microcytosis Slight; Nucleated Red Blood Cells 1 (0-5); Ovalocytes Slight; Platelet Estimate Adequate; Segmented Neutrophils 91 % (50-85); Target Cells Few; Total Cells Counted 100
[2017-03-31] MEDS: AZITHROMYCIN INJ 500 MG in SODIUM CHLORIDE 0.9% 250 ML IV SCH (06:27)
[2017-03-31] MEDS ORDERED: MAGNESIUM SULF RIDER 2 GM in PREMIX 1 EACH IV ONE (08:25)
[2017-03-31] MEDS ORDERED: MAGNESIUM CHLORIDE 64 MG TABLET PO ONE (08:25)
[2017-03-31] MEDS: FLUoxetine 20 MG CAPSULE PO SCH (09:03)
[2017-03-31] MEDS: amLODIPine 5 MG TABLET PO SCH (09:03)
[2017-03-31] MEDS: PANTOPRAZOLE 40 MG TABLET PO SCH (09:03)
[2017-03-31] MEDS: NEBIVOLOL 10 MG TABLET PO SCH (09:04)
[2017-03-31] MEDS: ISOSORBIDE MONONITRATE 30 MG TABLET PO SCH (09:04)
[2017-03-31] MEDS: acetaZOLAMIDE 250 MG TABLET PO SCH ×2 (09:04→21:46)
[2017-03-31] MEDS: SPIRONOLACTONE 25 MG TABLET PO SCH (09:04)
[2017-03-31] MEDS: NYSTATIN/TRIAMCINOLONE CREAM 15 GM TUBE TOP SCH ×2 (09:04→21:52)
[2017-03-31] MEDS: FUROSEMIDE 40 MG TABLET PO SCH (09:04)
[2017-03-31] MEDS: FLUTICASONE 50 MCG NASAL SPRAY 16 GM BOTTLE BOTH NARES SCH (09:05)
[2017-04-01] MEDS: ALBUTEROL/IPRATROPIUM 3 ML NEB RESP TX SCH ×6 (00:16→19:36)
[2017-04-01] MEDS: methylPREDNISolone SOD SUC 40 MG/1 ML VIAL IV SCH ×2 (00:43→12:35)
[2017-04-01] MEDS: cefTRIAXone 1,000 MG in SYRINGE 1 EACH IV SCH (05:42)
[2017-04-01] MEDS: ENOXAPARIN 40 MG/0.4 ML SYRINGE SUBCUT SCH (05:43)
[2017-04-01] MEDS: AZITHROMYCIN INJ 500 MG in SODIUM CHLORIDE 0.9% 250 ML IV SCH (06:48)
[2017-04-01] MEDS: amLODIPine 5 MG TABLET PO SCH (08:15)
[2017-04-01] MEDS: NEBIVOLOL 10 MG TABLET PO SCH (08:15)
[2017-04-01] MEDS: FUROSEMIDE 40 MG TABLET PO SCH (08:15)
[2017-04-01] MEDS: acetaZOLAMIDE 250 MG TABLET PO SCH ×2 (08:15→21:20)
[2017-04-01] MEDS: SPIRONOLACTONE 25 MG TABLET PO SCH (08:15)
[2017-04-01] MEDS: FLUoxetine 20 MG CAPSULE PO SCH (08:16)
[2017-04-01] MEDS: PANTOPRAZOLE 40 MG TABLET PO SCH (08:16)
[2017-04-01] MEDS: ISOSORBIDE MONONITRATE 30 MG TABLET PO SCH (08:16)
[2017-04-01] MEDS: FLUTICASONE 50 MCG NASAL SPRAY 16 GM BOTTLE BOTH NARES SCH (08:17)
[2017-04-01] MEDS: NYSTATIN/TRIAMCINOLONE CREAM 15 GM TUBE TOP SCH ×2 (08:17→21:20)
[2017-04-01] MEDS: MAGNESIUM CHLORIDE 64 MG TABLET PO SCH ×2 (12:35→21:20)
[2017-04-01] MEDS: ACETAMINOPHEN 325 MG TABLET PO PRN (21:20)
[2017-04-02] MEDS: ALBUTEROL/IPRATROPIUM 3 ML NEB RESP TX SCH ×7 (00:21→19:15)
[2017-04-02] MEDS: methylPREDNISolone SOD SUC 40 MG/1 ML VIAL IV SCH ×2 (00:36→13:05)
[2017-04-02] MEDS: cefTRIAXone 1,000 MG in SYRINGE 1 EACH IV SCH (05:22)
[2017-04-02] MEDS: ENOXAPARIN 40 MG/0.4 ML SYRINGE SUBCUT SCH (05:22)
[2017-04-02] MEDS: AZITHROMYCIN INJ 500 MG in SODIUM CHLORIDE 0.9% 250 ML IV SCH (05:26)
[2017-04-02 06:20] LABS: Basophils % 0.1 % (0.0-0.8); Hematocrit 30.9 VOL% (35.7-47.0); Hemoglobin 9.2 GM/DL (12.0-16.0); Immature Granulocytes % 3.3 %; Immature Granulocytes Absolute 0.51 #; Lymphocytes # 0.5 10*3/uL (1.4-4.0); Lymphocytes % 3.2 % (21.3-54.2); Mean Corpuscular HGB Conc 29.8 GM/DL (32-36); Mean Corpuscular Hemoglobin 22 PG (27-34); Mean Corpuscular Volume 73.6 FL (87-102); Mean Platelet Volume 10.1 FL (9.6-12.0); Monocytes # 1.2 10*3/uL (0.11-0.8); Monocytes % 7.4 % (1.7-12.7); NRBC # 0.05 10*3/uL; Neutrophils # 13.4 10*3/uL (1.4-7.4); Platelet Count 511 T/CUMM (130-400); Red Cell Distribution Width 25.8 % (9.3-17.3); White Blood Count 15.6 T/CUMM (4-12)
[2017-04-02 06:54] LABS: Acanthocytes Few; Anisocytosis 2+; Lymphocytes 14 % (20-55); Microcytosis 2+; Platelet Estimate Normal; Segmented Neutrophils 84 % (50-85); Total Cells Counted 100
[2017-04-02 06:55] LABS: Calcium 9.1 MG/DL (8.5-10.1); Magnesium 2.1 MG/DL (1.8-2.4); Osmolality,Calculated 276.1 MOS/KG (273-304)
[2017-04-02] MEDS: acetaZOLAMIDE 250 MG TABLET PO SCH ×2 (09:34→22:08)
[2017-04-02] MEDS: ISOSORBIDE MONONITRATE 30 MG TABLET PO SCH (09:34)
[2017-04-02] MEDS: SPIRONOLACTONE 25 MG TABLET PO SCH (09:34)
[2017-04-02] MEDS: NEBIVOLOL 10 MG TABLET PO SCH (09:34)
[2017-04-02] MEDS: FUROSEMIDE 40 MG TABLET PO SCH (09:34)
[2017-04-02] MEDS: FLUTICASONE 50 MCG NASAL SPRAY 16 GM BOTTLE BOTH NARES SCH (09:35)
[2017-04-02] MEDS: amLODIPine 5 MG TABLET PO SCH (09:35)
[2017-04-02] MEDS: PANTOPRAZOLE 40 MG TABLET PO SCH (09:35)
[2017-04-02] MEDS: FLUoxetine 20 MG CAPSULE PO SCH (09:35)
[2017-04-02] MEDS: MAGNESIUM CHLORIDE 64 MG TABLET PO SCH ×2 (09:35→22:09)
[2017-04-02] MEDS: NYSTATIN/TRIAMCINOLONE CREAM 15 GM TUBE TOP SCH ×2 (09:37→22:11)
[2017-04-02] MEDS: ACETAMINOPHEN 325 MG TABLET PO PRN ×2 (15:26→22:09)
[2017-04-03] MEDS: ALBUTEROL/IPRATROPIUM 3 ML NEB RESP TX SCH ×7 (00:04→23:39)
[2017-04-03] MEDS: methylPREDNISolone SOD SUC 40 MG/1 ML VIAL IV SCH ×2 (01:36→14:46)
[2017-04-03] MEDS: ENOXAPARIN 40 MG/0.4 ML SYRINGE SUBCUT SCH (05:44)
[2017-04-03] MEDS: cefTRIAXone 1,000 MG in SYRINGE 1 EACH IV SCH (05:44)
[2017-04-03] MEDS: AZITHROMYCIN INJ 500 MG in SODIUM CHLORIDE 0.9% 250 ML IV SCH (05:44)
[2017-04-03] MEDS: NYSTATIN/TRIAMCINOLONE CREAM 15 GM TUBE TOP SCH ×2 (08:10→21:26)
[2017-04-03] MEDS: ISOSORBIDE MONONITRATE 30 MG TABLET PO SCH (08:11)
[2017-04-03] MEDS: NEBIVOLOL 10 MG TABLET PO SCH (08:11)
[2017-04-03] MEDS: MAGNESIUM CHLORIDE 64 MG TABLET PO SCH ×2 (08:11→21:22)
[2017-04-03] MEDS: FLUTICASONE 50 MCG NASAL SPRAY 16 GM BOTTLE BOTH NARES SCH (08:11)
[2017-04-03] MEDS: FUROSEMIDE 40 MG TABLET PO SCH (08:12)
[2017-04-03] MEDS: PANTOPRAZOLE 40 MG TABLET PO SCH (08:12)
[2017-04-03] MEDS: SPIRONOLACTONE 25 MG TABLET PO SCH (08:12)
[2017-04-03] MEDS: amLODIPine 5 MG TABLET PO SCH (08:12)
[2017-04-03] MEDS: acetaZOLAMIDE 250 MG TABLET PO SCH ×2 (08:12→21:22)
[2017-04-03] MEDS: FLUoxetine 20 MG CAPSULE PO SCH (08:12)
[2017-04-03 09:54] LABS: Calcium 9.3 MG/DL (8.5-10.1); Osmolality,Calculated 274.2 MOS/KG (273-304); Potassium 4.1 MMOL/L (3.5-5.1)
[2017-04-03 10:12] LABS: Basophils % 0.1 % (0.0-0.8); Hematocrit 34.2 VOL% (35.7-47.0); Immature Granulocytes % 4.6 %; Immature Granulocytes Absolute 0.84 #; Lymphocytes # 0.6 10*3/uL (1.4-4.0); Lymphocytes % 3.4 % (21.3-54.2); Mean Corpuscular HGB Conc 29.2 GM/DL (32-36); Mean Corpuscular Hemoglobin 22 PG (27-34); Mean Corpuscular Volume 74.3 FL (87-102); Mean Platelet Volume 9.9 FL (9.6-12.0); Monocytes # 0.9 10*3/uL (0.11-0.8); Monocytes % 5.1 % (1.7-12.7); NRBC # 0.05 10*3/uL; Neutrophils # 15.9 10*3/uL (1.4-7.4); Neutrophils % 86.8 % (38.7-73.9); Platelet Count 533 T/CUMM (130-400); Red Cell Distribution Width 26.4 % (9.3-17.3); White Blood Count 18.4 T/CUMM (4-12)
[2017-04-03 10:18] LABS: Giant Platelets Few; Hypochromasia 1+; Microcytosis Slight; Ovalocytes Slight; Platelet Estimate Increased
[2017-04-03] MEDS ORDERED: SODIUM CHLORIDE 0.9% 1,000 ML IV SCH (11:00)
[2017-04-03] MEDS: FERRIC GLUCONATE COMPLEX 125 MG in SODIUM CHLORIDE 0.9% 100 ML IV SCH (14:46)
[2017-04-03 16:02] LABS: Apearance,Urine Slightly Hazy (Clear); Bilirubin,Urine Negative (Negative); Blood, Urine Moderate mg/dL (Negative); Glucose,Urine (UA) Negative (Negative); Ketones,Urine Negative (Negative); Mucus,Urine Occasional /LPF (Occasional); Nitrite,Urine Negative (Negative); Protein,Urine Negative; RBC,Urine 10 /HPF (0-4); Squamous Epithelial Cell,Urine Occasional /HPF (0-10); Urine Color Yellow (Yellow); Urine Specific Gravity 1.012 (1.001-1.035); Urine Urobilinogen < 2.0 EU/DL (0.2-1.0); WBC,Urine 3 /HPF (0-6)
[2017-04-04] MEDS: methylPREDNISolone SOD SUC 40 MG/1 ML VIAL IV SCH (01:49)
[2017-04-04] MEDS: ACETAMINOPHEN 325 MG TABLET PO PRN (01:53)
[2017-04-04] MEDS: ALBUTEROL/IPRATROPIUM 3 ML NEB RESP TX SCH ×5 (04:45→19:59)
[2017-04-04 05:30] LABS: Basophils % 0.1 % (0.0-0.8); Hematocrit 31.8 VOL% (35.7-47.0); Hemoglobin 9.3 GM/DL (12.0-16.0); Immature Granulocytes % 3.4 %; Immature Granulocytes Absolute 0.79 #; Lymphocytes # 0.6 10*3/uL (1.4-4.0); Lymphocytes % 2.6 % (21.3-54.2); Mean Corpuscular HGB Conc 29.2 GM/DL (32-36); Mean Corpuscular Hemoglobin 22 PG (27-34); Mean Platelet Volume 9.8 FL (9.6-12.0); Monocytes # 2.2 10*3/uL (0.11-0.8); Monocytes % 9.7 % (1.7-12.7); NRBC # 0.05 10*3/uL; Neutrophils # 19.4 10*3/uL (1.4-7.4); Neutrophils % 84.2 % (38.7-73.9); Platelet Count 467 T/CUMM (130-400); Red Blood Count 4.24 MC/CUMM (3.8-5.5); Red Cell Distribution Width 26.1 % (9.3-17.3); White Blood Count 23.1 T/CUMM (4-12)
[2017-04-04 05:51] LABS: Calcium 8.9 MG/DL (8.5-10.1); Potassium 3.8 MMOL/L (3.5-5.1)
[2017-04-04 05:55] LABS: Acanthocytes Few; Hypochromasia 2+; Lymphocytes 2 % (20-55); Metamyelocytes 1 %; Microcytosis 2+; Myelocytes 1 %; Segmented Neutrophils 93 % (50-85); Tear Drop Cells Slight; Total Cells Counted 100
[2017-04-04 05:56] LABS: Ovalocytes Slight; Platelet Estimate Increased; Target Cells Slight
[2017-04-04] MEDS: ENOXAPARIN 40 MG/0.4 ML SYRINGE SUBCUT SCH (06:38)
[2017-04-04] MEDS: cefTRIAXone 1,000 MG in SYRINGE 1 EACH IV SCH (06:39)
[2017-04-04] MEDS: AZITHROMYCIN INJ 500 MG in SODIUM CHLORIDE 0.9% 250 ML IV SCH (06:44)
[2017-04-04] MEDS: FLUoxetine 20 MG CAPSULE PO SCH (08:58)
[2017-04-04] MEDS: NEBIVOLOL 10 MG TABLET PO SCH (08:59)
[2017-04-04] MEDS: acetaZOLAMIDE 250 MG TABLET PO SCH ×2 (08:59→20:36)
[2017-04-04] MEDS: MAGNESIUM CHLORIDE 64 MG TABLET PO SCH ×2 (09:00→20:36)
[2017-04-04] MEDS: SPIRONOLACTONE 25 MG TABLET PO SCH (09:00)
[2017-04-04] MEDS: amLODIPine 5 MG TABLET PO SCH (09:00)
[2017-04-04] MEDS: PANTOPRAZOLE 40 MG TABLET PO SCH (09:00)
[2017-04-04] MEDS: FUROSEMIDE 40 MG TABLET PO SCH (09:01)
[2017-04-04] MEDS: FERRIC GLUCONATE COMPLEX 125 MG in SODIUM CHLORIDE 0.9% 100 ML IV SCH (09:01)
[2017-04-04] MEDS: ISOSORBIDE MONONITRATE 30 MG TABLET PO SCH (09:01)
[2017-04-04] MEDS: FLUTICASONE 50 MCG NASAL SPRAY 16 GM BOTTLE BOTH NARES SCH (09:09)
[2017-04-04] MEDS: NYSTATIN/TRIAMCINOLONE CREAM 15 GM TUBE TOP SCH ×2 (13:23→20:37)
[2017-04-05] MEDS: ACETAMINOPHEN 325 MG TABLET PO PRN (01:42)
[2017-04-05] MEDS: ALBUTEROL/IPRATROPIUM 3 ML NEB RESP TX SCH ×6 (01:43→20:02)
[2017-04-05] MEDS: ENOXAPARIN 40 MG/0.4 ML SYRINGE SUBCUT SCH (04:41)
[2017-04-05] MEDS: FLUTICASONE 50 MCG NASAL SPRAY 16 GM BOTTLE BOTH NARES SCH (08:50)
[2017-04-05] MEDS: FERRIC GLUCONATE COMPLEX 125 MG in SODIUM CHLORIDE 0.9% 100 ML IV SCH (08:50)
[2017-04-05] MEDS: NYSTATIN/TRIAMCINOLONE CREAM 15 GM TUBE TOP SCH ×2 (08:51→20:40)
[2017-04-05] MEDS: NEBIVOLOL 10 MG TABLET PO SCH (08:51)
[2017-04-05] MEDS: MAGNESIUM CHLORIDE 64 MG TABLET PO SCH ×2 (08:51→20:40)
[2017-04-05] MEDS: methylPREDNISolone SOD SUC 40 MG/1 ML VIAL IV SCH (08:51)
[2017-04-05] MEDS: ISOSORBIDE MONONITRATE 30 MG TABLET PO SCH (08:52)
[2017-04-05] MEDS: PANTOPRAZOLE 40 MG TABLET PO SCH (08:52)
[2017-04-05] MEDS: SPIRONOLACTONE 25 MG TABLET PO SCH (08:52)
[2017-04-05] MEDS: FUROSEMIDE 40 MG TABLET PO SCH (08:52)
[2017-04-05] MEDS: FLUoxetine 20 MG CAPSULE PO SCH (08:52)
[2017-04-05] MEDS: amLODIPine 5 MG TABLET PO SCH (08:52)
[2017-04-05 10:34] LABS: Basophils % 0.1 % (0.0-0.8); Eosinophils # 0.1 10*3/uL (0.0-0.87); Eosinophils % 0.7 % (0.00-10.9); Hematocrit 32.8 VOL% (35.7-47.0); Hemoglobin 9.6 GM/DL (12.0-16.0); Immature Granulocytes Absolute 1.01 #; Lymphocytes # 2.6 10*3/uL (1.4-4.0); Lymphocytes % 15.2 % (21.3-54.2); Mean Corpuscular HGB Conc 29.3 GM/DL (32-36); Mean Corpuscular Hemoglobin 22 PG (27-34); Mean Corpuscular Volume 75.1 FL (87-102); Mean Platelet Volume 10.2 FL (9.6-12.0); Monocytes # 1.1 10*3/uL (0.11-0.8); Monocytes % 6.6 % (1.7-12.7); NRBC # 0.04 10*3/uL; Neutrophils % 71.4 % (38.7-73.9); Platelet Count 443 T/CUMM (130-400); Red Blood Count 4.37 MC/CUMM (3.8-5.5); Red Cell Distribution Width 26.5 % (9.3-17.3); White Blood Count 16.8 T/CUMM (4-12)
[2017-04-05 10:55] LABS: Giant Platelets Few; Hypochromasia 1+; Ovalocytes Slight; Platelet Estimate Adequate
[2017-04-05] MEDS ORDERED: traMADol 50 MG TABLET PO PRN (14:56)
[2017-04-06] MEDS: ALBUTEROL/IPRATROPIUM 3 ML NEB RESP TX SCH ×6 (00:01→19:50)
[2017-04-06] MEDS: ACETAMINOPHEN 325 MG TABLET PO PRN ×2 (05:06→15:30)
[2017-04-06] MEDS: ENOXAPARIN 40 MG/0.4 ML SYRINGE SUBCUT SCH (05:06)
[2017-04-06] MEDS: methylPREDNISolone SOD SUC 40 MG/1 ML VIAL IV SCH (08:42)
[2017-04-06] MEDS: NYSTATIN/TRIAMCINOLONE CREAM 15 GM TUBE TOP SCH ×2 (08:42→21:05)
[2017-04-06] MEDS: MAGNESIUM CHLORIDE 64 MG TABLET PO SCH ×2 (08:43→21:05)
[2017-04-06] MEDS: FERRIC GLUCONATE COMPLEX 125 MG in SODIUM CHLORIDE 0.9% 100 ML IV SCH (08:43)
[2017-04-06] MEDS: FLUoxetine 20 MG CAPSULE PO SCH (08:43)
[2017-04-06] MEDS: SPIRONOLACTONE 25 MG TABLET PO SCH (08:43)
[2017-04-06] MEDS: FLUTICASONE 50 MCG NASAL SPRAY 16 GM BOTTLE BOTH NARES SCH (08:43)
[2017-04-06] MEDS: NEBIVOLOL 10 MG TABLET PO SCH (08:43)
[2017-04-06] MEDS: ISOSORBIDE MONONITRATE 30 MG TABLET PO SCH (08:44)
[2017-04-06] MEDS: amLODIPine 5 MG TABLET PO SCH (08:44)
[2017-04-06] MEDS: FUROSEMIDE 40 MG TABLET PO SCH (08:44)
[2017-04-06] MEDS: PANTOPRAZOLE 40 MG TABLET PO SCH (08:44)
[2017-04-06] MEDS ORDERED: ZALEPLON 5 MG CAPSULE PO ONE (23:28)
[2017-04-07] MEDS: ALBUTEROL/IPRATROPIUM 3 ML NEB RESP TX SCH ×6 (01:15→19:21)
[2017-04-07 05:01] LABS: Basophils % 0.1 % (0.0-0.8); Eosinophils % 0.1 % (0.00-10.9); Hematocrit 27.5 VOL% (35.7-47.0); Hemoglobin 8.6 GM/DL (12.0-16.0); Immature Granulocytes % 3.9 %; Immature Granulocytes Absolute 0.95 #; Lymphocytes # 1.7 10*3/uL (1.4-4.0); Lymphocytes % 7.1 % (21.3-54.2); Mean Corpuscular HGB Conc 31.3 GM/DL (32-36); Mean Corpuscular Hemoglobin 22 PG (27-34); Mean Corpuscular Volume 71.2 FL (87-102); Mean Platelet Volume 9.5 FL (9.6-12.0); Monocytes # 1.3 10*3/uL (0.11-0.8); Monocytes % 5.4 % (1.7-12.7); NRBC # 0.03 10*3/uL; Neutrophils # 20.2 10*3/uL (1.4-7.4); Neutrophils % 83.4 % (38.7-73.9); Platelet Count 346 T/CUMM (130-400); Red Blood Count 3.86 MC/CUMM (3.8-5.5); Red Cell Distribution Width 26.8 % (9.3-17.3); White Blood Count 24.3 T/CUMM (4-12)
[2017-04-07] MEDS: ENOXAPARIN 40 MG/0.4 ML SYRINGE SUBCUT SCH (05:22)
[2017-04-07] MEDS ORDERED: ZALEPLON 5 MG CAPSULE PO PRN (05:31)
[2017-04-07 05:33] LABS: Calcium 8.6 MG/DL (8.5-10.1); Potassium 3.7 MMOL/L (3.5-5.1)
[2017-04-07 06:12] LABS: Anisocytosis 2+; Band Neutrophils 12 % (0-10); Lymphocytes 1 % (20-55); Poikilocytosis 2+; Segmented Neutrophils 87 % (50-85); Target Cells 1+; Total Cells Counted 100
[2017-04-07 06:13] LABS: Acanthocytes 1+
[2017-04-07] MEDS: FLUTICASONE 50 MCG NASAL SPRAY 16 GM BOTTLE BOTH NARES SCH (08:56)
[2017-04-07] MEDS: MAGNESIUM CHLORIDE 64 MG TABLET PO SCH ×2 (08:56→21:13)
[2017-04-07] MEDS: FLUoxetine 20 MG CAPSULE PO SCH (08:57)
[2017-04-07] MEDS: SPIRONOLACTONE 25 MG TABLET PO SCH (08:57)
[2017-04-07] MEDS: amLODIPine 5 MG TABLET PO SCH (08:57)
[2017-04-07] MEDS: PANTOPRAZOLE 40 MG TABLET PO SCH (08:57)
[2017-04-07] MEDS: ISOSORBIDE MONONITRATE 30 MG TABLET PO SCH (08:57)
[2017-04-07] MEDS: NEBIVOLOL 10 MG TABLET PO SCH (08:57)
[2017-04-07] MEDS: FERRIC GLUCONATE COMPLEX 125 MG in SODIUM CHLORIDE 0.9% 100 ML IV SCH (08:57)
[2017-04-07] MEDS: FUROSEMIDE 40 MG TABLET PO SCH (08:57)
[2017-04-07] MEDS: NYSTATIN/TRIAMCINOLONE CREAM 15 GM TUBE TOP SCH ×2 (08:58→21:13)
[2017-04-07] MEDS ORDERED: predniSONE 20 MG TABLET PO SCH (09:00)
[2017-04-07] MEDS: predniSONE 10 MG TABLET PO SCH (10:38)
[2017-04-08] MEDS: ALBUTEROL/IPRATROPIUM 3 ML NEB RESP TX SCH ×5 (00:56→14:11)
[2017-04-08] MEDS: ENOXAPARIN 40 MG/0.4 ML SYRINGE SUBCUT SCH (05:15)
[2017-04-08] MEDS: ACETAMINOPHEN 325 MG TABLET PO PRN (05:22)
[2017-04-08 06:17] LABS: Basophils % 0.2 % (0.0-0.8); Eosinophils # 0.2 10*3/uL (0.0-0.87); Eosinophils % 0.8 % (0.00-10.9); Hematocrit 28.9 VOL% (35.7-47.0); Hemoglobin 9.1 GM/DL (12.0-16.0); Immature Granulocytes % 3.9 %; Lymphocytes # 2.6 10*3/uL (1.4-4.0); Mean Corpuscular HGB Conc 31.5 GM/DL (32-36); Mean Corpuscular Hemoglobin 23 PG (27-34); Mean Corpuscular Volume 72.6 FL (87-102); Mean Platelet Volume 10.5 FL (9.6-12.0); Monocytes # 1.4 10*3/uL (0.11-0.8); Monocytes % 6.1 % (1.7-12.7); NRBC # 0.03 10*3/uL; Neutrophils # 18.1 10*3/uL (1.4-7.4); Platelet Count 364 T/CUMM (130-400); Red Blood Count 3.98 MC/CUMM (3.8-5.5); Red Cell Distribution Width 27.6 % (9.3-17.3); White Blood Count 23.2 T/CUMM (4-12)
[2017-04-08 06:45] LABS: Calcium 8.2 MG/DL (8.5-10.1); Magnesium 1.9 MG/DL (1.8-2.4); Potassium 4.1 MMOL/L (3.5-5.1)
[2017-04-08 06:48] LABS: Band Neutrophils 3 % (0-10); Eosinophils 1 % (0-10); Giant Platelets Few; Hypochromasia 1+; Lymphocytes 8 % (20-55); Ovalocytes Slight; Platelet Estimate Adequate; Segmented Neutrophils 80 % (50-85); Total Cells Counted 100
[2017-04-08] MEDS: amLODIPine 5 MG TABLET PO SCH (09:28)
[2017-04-08] MEDS: FLUoxetine 20 MG CAPSULE PO SCH (09:28)
[2017-04-08] MEDS: FLUTICASONE 50 MCG NASAL SPRAY 16 GM BOTTLE BOTH NARES SCH (09:28)
[2017-04-08] MEDS: predniSONE 10 MG TABLET PO SCH (09:29)
[2017-04-08] MEDS: MAGNESIUM CHLORIDE 64 MG TABLET PO SCH (09:29)
[2017-04-08] MEDS: FERRIC GLUCONATE COMPLEX 125 MG in SODIUM CHLORIDE 0.9% 100 ML IV SCH (09:29)
[2017-04-08] MEDS: SPIRONOLACTONE 25 MG TABLET PO SCH (09:29)
[2017-04-08] MEDS: ISOSORBIDE MONONITRATE 30 MG TABLET PO SCH (09:29)
[2017-04-08] MEDS: FUROSEMIDE 40 MG TABLET PO SCH (09:29)
[2017-04-08] MEDS: NEBIVOLOL 10 MG TABLET PO SCH (09:29)
[2017-04-08] MEDS: PANTOPRAZOLE 40 MG TABLET PO SCH (09:29)
[2017-04-08] MEDS: NYSTATIN/TRIAMCINOLONE CREAM 15 GM TUBE TOP SCH (09:29)
[2017-04-08 11:16] VITALS: BP 123/61
== END 2017-04-08 15:35 | disposition swing bed (61) | DRG 329 ==
LOC: N.ED 00:50 → SUATTDRO 04:53 → N.EDINP 04:53 → N.TELEN 05:20 → N.ICU 03-29 10:55 → N.3E 03-31 13:05
PROVIDERS: ADMIT Hospitalist; ATTEND Internal Medicine
PROC: COLONBX (2017-03-22 07:05)

== ENCOUNTER 2017-04-17 13:14 | Inpatient (IN) ==
[2017-04-17] MEDS ORDERED: MORPHINE 2 MG/1 ML SYRINGE IV PRN (15:18)
[2017-04-17] MEDS ORDERED: diphenhydrAMINE CAP 25 MG CAPSULE PO PRN (15:18)
[2017-04-17] MEDS ORDERED: guaiFENesin/DM ER 600-30 MG TABLET PO PRN (15:18)
[2017-04-17] MEDS ORDERED: NITROGLYCERIN SL 0.4 MG TABLET SL PRN (15:24)
[2017-04-17] MEDS ORDERED: FUROSEMIDE 40 MG TABLET PO SCH (15:30)
[2017-04-17] MEDS ORDERED: ENOXAPARIN 40 MG/0.4 ML SYRINGE SUBCUT SCH (15:30)
[2017-04-17] MEDS ORDERED: SPIRONOLACTONE 25 MG TABLET PO SCH (15:30)
[2017-04-17] MEDS: metroNIDAZOLE INJ 500 MG in PREMIX 1 EACH IV SCH ×2 (18:23→23:58)
[2017-04-17] MEDS: FLUoxetine 20 MG CAPSULE PO SCH (18:23)
[2017-04-17] MEDS: PANTOPRAZOLE 40 MG VIAL IV SCH (18:23)
[2017-04-17] MEDS: SODIUM CHLORIDE 0.9% 1,000 ML IV SCH (18:23)
[2017-04-17] MEDS: FLUTICASONE 50 MCG NASAL SPRAY 16 GM BOTTLE BOTH NARES SCH (18:24)
[2017-04-17 20:03] LABS: Apearance,Urine CLEAR (Clear); Bilirubin,Urine Negative (Negative); Blood, Urine Negative (Negative); Glucose,Urine (UA) Negative (Negative); Ketones,Urine Negative (Negative); Nitrite,Urine Negative (Negative); Protein,Urine Negative; RBC,Urine 2 /HPF (0-4); Squamous Epithelial Cell,Urine Occasional /HPF (0-10); Urine Color Yellow (Yellow); Urine Specific Gravity > 1.060 (1.001-1.035); WBC,Urine 3 /HPF (0-6)
[2017-04-17 20:29] LABS: Basophils # 0.1 10*3/uL (0.0-0.2); Basophils % 0.5 % (0.0-0.8); Eosinophils # 0.4 10*3/uL (0.0-0.87); Hematocrit 31.6 VOL% (35.7-47.0); Hemoglobin 9.8 GM/DL (12.0-16.0); Immature Granulocytes % 2.3 %; Immature Granulocytes Absolute 0.27 #; Lymphocytes # 2.3 10*3/uL (1.4-4.0); Lymphocytes % 19.5 % (21.3-54.2); Mean Corpuscular Hemoglobin 24 PG (27-34); Mean Platelet Volume 9.2 FL (9.6-12.0); Monocytes # 1.3 10*3/uL (0.11-0.8); Monocytes % 10.9 % (1.7-12.7); NRBC # 0.02 10*3/uL; Neutrophils # 7.6 10*3/uL (1.4-7.4); Neutrophils % 63.8 % (38.7-73.9); Platelet Count 529 T/CUMM (130-400); Red Blood Count 4.05 MC/CUMM (3.8-5.5); Red Cell Distribution Width 30.4 % (9.3-17.3)
[2017-04-17 20:55] LABS: Albumin 2.2 G/DL (3.4-5.0); Bilirubin,Total 0.7 MG/DL (0.2-1.0); Calcium 8.1 MG/DL (8.5-10.1); Osmolality,Calculated 265.2 MOS/KG (273-304); Potassium 3.5 MMOL/L (3.5-5.1); Total Protein 5.3 G/DL (6.4-8.3)
[2017-04-17] MEDS: cefOXitin 2,000 MG in SYRINGE 1 EACH IV SCH (21:13)
[2017-04-17 21:26] LABS: Free T4 (Free Thyroxine) 1.26 NG/DL (0.76-1.46); Thyroid Stimulating Hormone 2.07 uIU/ml (0.358-3.74)
[2017-04-18] MEDS: cefOXitin 2,000 MG in SYRINGE 1 EACH IV SCH ×4 (02:08→20:30)
[2017-04-18] MEDS: SODIUM CHLORIDE 0.9% 1,000 ML IV SCH ×2 (02:08→20:30)
[2017-04-18] MEDS: metroNIDAZOLE INJ 500 MG in PREMIX 1 EACH IV SCH ×3 (05:54→18:09)
[2017-04-18 06:39] LABS: Basophils # 0.1 10*3/uL (0.0-0.2); Basophils % 0.6 % (0.0-0.8); Eosinophils # 0.4 10*3/uL (0.0-0.87); Eosinophils % 3.2 % (0.00-10.9); Hematocrit 31.6 VOL% (35.7-47.0); Hemoglobin 9.6 GM/DL (12.0-16.0); Immature Granulocytes % 2.3 %; Immature Granulocytes Absolute 0.29 #; Lymphocytes # 1.6 10*3/uL (1.4-4.0); Lymphocytes % 12.7 % (21.3-54.2); Mean Corpuscular HGB Conc 30.4 GM/DL (32-36); Mean Corpuscular Hemoglobin 24 PG (27-34); Mean Corpuscular Volume 78.6 FL (87-102); Monocytes # 1.3 10*3/uL (0.11-0.8); Monocytes % 10.8 % (1.7-12.7); Neutrophils # 8.8 10*3/uL (1.4-7.4); Neutrophils % 70.4 % (38.7-73.9); Platelet Count 539 T/CUMM (130-400); Red Blood Count 4.02 MC/CUMM (3.8-5.5); Red Cell Distribution Width 30.5 % (9.3-17.3); White Blood Count 12.4 T/CUMM (4-12)
[2017-04-18 06:58] LABS: Calcium 7.9 MG/DL (8.5-10.1); Potassium 3.5 MMOL/L (3.5-5.1)
[2017-04-18 06:59] LABS: Hypochromasia 1+; Microcytosis 1+; Spherocytes Slight; Target Cells Few
[2017-04-18 07:00] LABS: Acanthocytes Few; Platelet Estimate Increased
[2017-04-18] MEDS: PANTOPRAZOLE 40 MG VIAL IV SCH (08:50)
[2017-04-18] MEDS: FLUoxetine 20 MG CAPSULE PO SCH (08:50)
[2017-04-18] MEDS ORDERED: MAGNESIUM SULF RIDER 4 GM in PREMIX 1 EACH IV PRN (09:13)
[2017-04-18] MEDS ORDERED: MAGNESIUM SULF RIDER 2 GM in PREMIX 1 EACH IV PRN (09:13)
[2017-04-18] MEDS: FLUTICASONE 50 MCG NASAL SPRAY 16 GM BOTTLE BOTH NARES SCH (11:13)
[2017-04-19] MEDS: metroNIDAZOLE INJ 500 MG in PREMIX 1 EACH IV SCH ×5 (00:08→23:25)
[2017-04-19] MEDS: cefOXitin 2,000 MG in SYRINGE 1 EACH IV SCH ×4 (02:49→20:51)
[2017-04-19] MEDS: SODIUM CHLORIDE 0.9% 1,000 ML IV SCH ×2 (05:11→20:53)
[2017-04-19 06:58] LABS: Basophils # 0.1 10*3/uL (0.0-0.2); Basophils % 0.7 % (0.0-0.8); Eosinophils # 0.6 10*3/uL (0.0-0.87); Eosinophils % 4.8 % (0.00-10.9); Hematocrit 31.9 VOL% (35.7-47.0); Hemoglobin 9.6 GM/DL (12.0-16.0); Immature Granulocytes % 4.4 %; Immature Granulocytes Absolute 0.52 #; Lymphocytes # 1.4 10*3/uL (1.4-4.0); Lymphocytes % 11.4 % (21.3-54.2); Mean Corpuscular HGB Conc 30.1 GM/DL (32-36); Mean Corpuscular Hemoglobin 24 PG (27-34); Mean Corpuscular Volume 79.4 FL (87-102); Monocytes # 1.3 10*3/uL (0.11-0.8); Monocytes % 10.8 % (1.7-12.7); Neutrophils # 8.1 10*3/uL (1.4-7.4); Neutrophils % 67.9 % (38.7-73.9); Platelet Count 649 T/CUMM (130-400); Red Blood Count 4.02 MC/CUMM (3.8-5.5); Red Cell Distribution Width 30.4 % (9.3-17.3); White Blood Count 11.9 T/CUMM (4-12)
[2017-04-19 07:17] LABS: Eosinophils 6 % (0-10); Lymphocytes 7 % (20-55); Segmented Neutrophils 83 % (50-85); Total Cells Counted 100
[2017-04-19 07:18] LABS: Giant Platelets Few; Hypochromasia 1+; Microcytosis Slight; Ovalocytes Slight; Platelet Estimate Increased
[2017-04-19 07:30] LABS: Albumin 2.1 G/DL (3.4-5.0); Bilirubin,Total 0.5 MG/DL (0.2-1.0); Calcium 7.5 MG/DL (8.5-10.1); Osmolality,Calculated 269.8 MOS/KG (273-304); Potassium 3.7 MMOL/L (3.5-5.1)
[2017-04-19] MEDS: FLUoxetine 20 MG CAPSULE PO SCH (08:23)
[2017-04-19] MEDS: PANTOPRAZOLE 40 MG VIAL IV SCH (08:23)
[2017-04-19] MEDS: FLUTICASONE 50 MCG NASAL SPRAY 16 GM BOTTLE BOTH NARES SCH (08:24)
[2017-04-19] MEDS: ONDANSETRON 4 MG/2 ML VIAL IV PRN (13:03)
[2017-04-19] MEDS: ACETAMINOPHEN 325 MG TABLET PO PRN (17:22)
[2017-04-20] MEDS: cefOXitin 2,000 MG in SYRINGE 1 EACH IV SCH ×4 (01:09→20:45)
[2017-04-20 05:41] LABS: Bilirubin,Total 0.4 MG/DL (0.2-1.0); Calcium 8.1 MG/DL (8.5-10.1); Osmolality,Calculated 273.5 MOS/KG (273-304); Potassium 3.7 MMOL/L (3.5-5.1); Total Protein 5.2 G/DL (6.4-8.3)
[2017-04-20] MEDS: metroNIDAZOLE INJ 500 MG in PREMIX 1 EACH IV SCH ×3 (06:12→17:10)
[2017-04-20 06:32] LABS: Basophils # 0.1 10*3/uL (0.0-0.2); Basophils % 0.5 % (0.0-0.8); Eosinophils # 0.5 10*3/uL (0.0-0.87); Eosinophils % 3.2 % (0.00-10.9); Hematocrit 32.1 VOL% (35.7-47.0); Hemoglobin 9.9 GM/DL (12.0-16.0); Immature Granulocytes % 2.7 %; Immature Granulocytes Absolute 0.38 #; Lymphocytes # 1.6 10*3/uL (1.4-4.0); Lymphocytes % 11.3 % (21.3-54.2); Mean Corpuscular HGB Conc 30.8 GM/DL (32-36); Mean Corpuscular Hemoglobin 24 PG (27-34); Mean Corpuscular Volume 78.7 FL (87-102); Mean Platelet Volume 9.1 FL (9.6-12.0); Monocytes # 1.5 10*3/uL (0.11-0.8); Monocytes % 10.5 % (1.7-12.7); Neutrophils # 9.9 10*3/uL (1.4-7.4); Neutrophils % 71.8 % (38.7-73.9); Platelet Count 730 T/CUMM (130-400); Red Blood Count 4.08 MC/CUMM (3.8-5.5); Red Cell Distribution Width 30.7 % (9.3-17.3); White Blood Count 13.9 T/CUMM (4-12)
[2017-04-20 06:34] LABS: Band Neutrophils 1 % (0-10); Eosinophils 2 % (0-10); Lymphocytes 9 % (20-55); Platelet Estimate Increased; Segmented Neutrophils 77 % (50-85); Total Cells Counted 100
[2017-04-20] MEDS ORDERED: SODIUM PHOSPHATE INJ 15 MMOL in SODIUM CHLORIDE 0.9% 250 ML IV ONE (07:37)
[2017-04-20] MEDS: PANTOPRAZOLE 40 MG VIAL IV SCH (08:22)
[2017-04-20] MEDS: FLUoxetine 20 MG CAPSULE PO SCH (08:22)
[2017-04-20] MEDS: FLUTICASONE 50 MCG NASAL SPRAY 16 GM BOTTLE BOTH NARES SCH (08:22)
[2017-04-20] MEDS: SODIUM CHLORIDE 0.9% 1,000 ML IV SCH (13:33)
[2017-04-20] MEDS: ACETAMINOPHEN 325 MG TABLET PO PRN (20:44)
[2017-04-20] MEDS: ONDANSETRON 4 MG/2 ML VIAL IV PRN (20:44)
[2017-04-21] MEDS: metroNIDAZOLE INJ 500 MG in PREMIX 1 EACH IV SCH ×4 (00:30→17:52)
[2017-04-21] MEDS: cefOXitin 2,000 MG in SYRINGE 1 EACH IV SCH ×4 (01:54→20:53)
[2017-04-21] MEDS: SODIUM CHLORIDE 0.9% 1,000 ML IV SCH ×2 (05:04→11:30)
[2017-04-21 06:04] LABS: Basophils # 0.1 10*3/uL (0.0-0.2); Basophils % 0.9 % (0.0-0.8); Eosinophils # 0.4 10*3/uL (0.0-0.87); Eosinophils % 3.8 % (0.00-10.9); Hematocrit 30.5 VOL% (35.7-47.0); Hemoglobin 9.4 GM/DL (12.0-16.0); Immature Granulocytes % 5.3 %; Immature Granulocytes Absolute 0.55 #; Lymphocytes # 1.9 10*3/uL (1.4-4.0); Lymphocytes % 17.8 % (21.3-54.2); Mean Corpuscular HGB Conc 30.8 GM/DL (32-36); Mean Corpuscular Hemoglobin 24 PG (27-34); Mean Corpuscular Volume 78.4 FL (87-102); Mean Platelet Volume 9.3 FL (9.6-12.0); Monocytes # 1.8 10*3/uL (0.11-0.8); Monocytes % 17.1 % (1.7-12.7); NRBC # 0.02 10*3/uL; Neutrophils # 5.7 10*3/uL (1.4-7.4); Neutrophils % 55.1 % (38.7-73.9); Platelet Count 721 T/CUMM (130-400); Red Blood Count 3.89 MC/CUMM (3.8-5.5); Red Cell Distribution Width 30.8 % (9.3-17.3); White Blood Count 10.4 T/CUMM (4-12)
[2017-04-21 06:20] LABS: Albumin 1.9 G/DL (3.4-5.0); Bilirubin,Total 0.5 MG/DL (0.2-1.0); Calcium 7.8 MG/DL (8.5-10.1); Osmolality,Calculated 274.4 MOS/KG (273-304); Potassium 3.5 MMOL/L (3.5-5.1); Total Protein 4.6 G/DL (6.4-8.3)
[2017-04-21 07:18] LABS: Band Neutrophils 5 % (0-10); Giant Platelets Few; Hypochromasia 1+; Lymphocytes 14 % (20-55); Platelet Estimate Increased; Segmented Neutrophils 64 % (50-85); Total Cells Counted 100
[2017-04-21 07:19] LABS: Microcytosis Slight; Ovalocytes Slight
[2017-04-21] MEDS: PANTOPRAZOLE 40 MG VIAL IV SCH (08:25)
[2017-04-21] MEDS: FLUTICASONE 50 MCG NASAL SPRAY 16 GM BOTTLE BOTH NARES SCH (08:26)
[2017-04-21] MEDS: FLUoxetine 20 MG CAPSULE PO SCH (08:26)
[2017-04-21] MEDS: amLODIPine 5 MG TABLET PO SCH (08:28)
[2017-04-21] MEDS: POTASSIUM PHOS/SOD PHOS POWDER 250 MG PACK PO SCH ×2 (08:29→20:53)
[2017-04-21] MEDS ORDERED: MAGNESIUM OXIDE 400 MG TABLET PO SCH (09:00)
[2017-04-21] MEDS: ACETAMINOPHEN 325 MG TABLET PO PRN (15:23)
[2017-04-22] MEDS: metroNIDAZOLE INJ 500 MG in PREMIX 1 EACH IV SCH ×3 (00:18→13:12)
[2017-04-22] MEDS: SODIUM CHLORIDE 0.9% 1,000 ML IV SCH ×3 (02:45→16:22)
[2017-04-22] MEDS: cefOXitin 2,000 MG in SYRINGE 1 EACH IV SCH ×3 (02:45→16:22)
[2017-04-22 08:52] LABS: Basophils # 0.1 10*3/uL (0.0-0.2); Eosinophils # 0.4 10*3/uL (0.0-0.87); Eosinophils % 4.6 % (0.00-10.9); Hematocrit 31.6 VOL% (35.7-47.0); Hemoglobin 9.9 GM/DL (12.0-16.0); Immature Granulocytes Absolute 0.55 #; Lymphocytes # 1.7 10*3/uL (1.4-4.0); Lymphocytes % 18.7 % (21.3-54.2); Mean Corpuscular HGB Conc 31.3 GM/DL (32-36); Mean Corpuscular Hemoglobin 25 PG (27-34); Mean Corpuscular Volume 78.8 FL (87-102); Monocytes # 1.7 10*3/uL (0.11-0.8); Monocytes % 18.7 % (1.7-12.7); Neutrophils # 4.7 10*3/uL (1.4-7.4); Platelet Count 775 T/CUMM (130-400); Red Blood Count 4.01 MC/CUMM (3.8-5.5); Red Cell Distribution Width 31.1 % (9.3-17.3); White Blood Count 9.2 T/CUMM (4-12)
[2017-04-22 09:11] LABS: Eosinophils 2 % (0-10); Hypochromasia 1+; Lymphocytes 17 % (20-55); Segmented Neutrophils 66 % (50-85); Total Cells Counted 100
[2017-04-22 09:12] LABS: Microcytosis 1+
[2017-04-22 09:13] LABS: Acanthocytes Few; Platelet Estimate Increased
[2017-04-22] MEDS: PANTOPRAZOLE 40 MG VIAL IV SCH (09:46)
[2017-04-22] MEDS: POTASSIUM PHOS/SOD PHOS POWDER 250 MG PACK PO SCH (09:47)
[2017-04-22] MEDS: amLODIPine 5 MG TABLET PO SCH (09:47)
[2017-04-22] MEDS: FLUoxetine 20 MG CAPSULE PO SCH (09:47)
[2017-04-22] MEDS: FLUTICASONE 50 MCG NASAL SPRAY 16 GM BOTTLE BOTH NARES SCH (09:53)
[2017-04-22 11:32] VITALS: BP 98/63
[2017-04-22] MEDS ORDERED: DIPHENOXYLATE/ATROPINE 2.5-0.025 MG TABLET PO ONE (15:43)
== END 2017-04-22 16:49 | disposition swing bed (61) | DRG 394 ==
LOC: EDUNIT# → EDBD → N.ED 13:14 → N.EDINP 15:18 → N.5E 17:52
PROVIDERS: ADMIT Internal Medicine; ATTEND Internal Medicine

== ENCOUNTER 2017-05-09 09:47 | Observation (INO) ==
[2017-05-09] MEDS ORDERED: DIAZEPAM 5 MG TABLET PO ONE (11:08)
[2017-05-09] MEDS ORDERED: MIDAZOLAM 10 MG/2 ML VIAL IV ONE (11:08)
[2017-05-09] MEDS ORDERED: fentaNYL 100 MCG/2 ML VIAL IV ONE (11:08)
[2017-05-09 11:29] LABS: Basophils # 0.1 10*3/uL (0.0-0.2); Basophils % 1.1 % (0.0-0.8); Eosinophils # 0.2 10*3/uL (0.0-0.87); Eosinophils % 1.6 % (0.00-10.9); Hematocrit 36.8 VOL% (35.7-47.0); Hemoglobin 11.3 GM/DL (12.0-16.0); Immature Granulocytes % 1.1 %; Immature Granulocytes Absolute 0.12 #; Lymphocytes # 2.3 10*3/uL (1.4-4.0); Lymphocytes % 20.5 % (21.3-54.2); Mean Corpuscular HGB Conc 30.7 GM/DL (32-36); Mean Corpuscular Hemoglobin 27 PG (27-34); Mean Platelet Volume 8.6 FL (9.6-12.0); Monocytes # 1.2 10*3/uL (0.11-0.8); Monocytes % 10.6 % (1.7-12.7); Neutrophils # 7.4 10*3/uL (1.4-7.4); Neutrophils % 65.1 % (38.7-73.9); Platelet Count 571 T/CUMM (130-400); Red Blood Count 4.23 MC/CUMM (3.8-5.5); Red Cell Distribution Width 31.4 % (9.3-17.3); White Blood Count 11.4 T/CUMM (4-12)
[2017-05-09 11:47] LABS: INR 1.1; PT Patient Result 11.5 SECS; Partial Thromboplastin Time 28.2 SECS (0-40)
[2017-05-09 11:50] LABS: Acanthocytes Few; Hypochromasia 1+; Microcytosis 1+; Target Cells Few
[2017-05-09 11:51] LABS: Platelet Estimate Increased
[2017-05-09] MEDS ORDERED: ONDANSETRON 4 MG/2 ML VIAL IV PRN (12:39)
[2017-05-09] MEDS ORDERED: ACETAMINOPHEN 325 MG TABLET PO PRN (12:39)
[2017-05-09] MEDS ORDERED: MORPHINE 2 MG/1 ML SYRINGE IV PRN (12:50)
[2017-05-09] MEDS ORDERED: SODIUM CHLORIDE 0.45% 1,000 ML IV SCH (13:30)
[2017-05-09] MEDS ORDERED: DIAZEPAM 5 MG TABLET ONE (14:09)
[2017-05-09] MEDS ORDERED: MIDAZOLAM 2 MG/2 ML VIAL ONE (14:25)
[2017-05-09] MEDS ORDERED: fentaNYL 100 MCG/2 ML VIAL ONE (14:25)
[2017-05-09] MEDS: metroNIDAZOLE 500 MG TABLET PO SCH ×2 (15:48→21:04)
[2017-05-09 18:05] LABS: Calcium 8.7 MG/DL (8.5-10.1); Osmolality,Calculated 273.4 MOS/KG (273-304); Potassium 3.1 MMOL/L (3.5-5.1)
[2017-05-09] MEDS: POTASSIUM CHLORIDE 20 MEQ TABLET PO PRN ×2 (18:37→22:03)
[2017-05-10] MEDS: POTASSIUM CHLORIDE 20 MEQ TABLET PO PRN ×2 (02:35→05:20)
[2017-05-10 06:56] LABS: Calcium 8.7 MG/DL (8.5-10.1); Osmolality,Calculated 275.4 MOS/KG (273-304); Potassium 4.6 MMOL/L (3.5-5.1)
[2017-05-10] MEDS: metroNIDAZOLE 500 MG TABLET PO SCH (08:54)
[2017-05-10] MEDS ORDERED: PANTOPRAZOLE 40 MG TABLET PO SCH (09:00)
[2017-05-10] MEDS ORDERED: LEVOFLOXACIN 500 MG TABLET PO SCH (09:00)
[2017-05-10 11:21] VITALS: BP 105/68
== END 2017-05-10 11:47 | disposition home or self-care (01) ==
LOC: N.RAD 09:47 → N.SDSINP 09:52 → INTOOBSV 12:15
PROVIDERS: ADMIT Surgery; ATTEND Surgery

== ENCOUNTER 2018-07-18 08:17 | Inpatient (IN) ==
[2018-07-18 09:25] LABS: Apearance,Urine CLEAR (Clear); Bacteria,Urine Many /HPF (Few); Bilirubin,Urine Negative (Negative); Blood, Urine Moderate mg/dL (Negative); Glucose,Urine (UA) Negative (Negative); Ketones,Urine Negative (Negative); Mucus,Urine Moderate /LPF (Occasional); Nitrite,Urine Negative (Negative); Protein,Urine 30 MG/DL; RBC,Urine 6 /HPF (0-4); Squamous Epithelial Cell,Urine Occasional /HPF (0-10); Urine Color Amber (Yellow); Urine Specific Gravity 1.024 (1.001-1.035); Urine Urobilinogen < 2.0 EU/DL (0.2-1.0); WBC,Urine 17 /HPF (0-6)
[2018-07-18 09:32] LABS: Basophils # 0.1 10*3/uL (0.0-0.2); Basophils % 0.4 % (0.0-0.8); Eosinophils % 0.2 % (0.00-10.9); Hematocrit 33.5 VOL% (35.7-47.0); Hemoglobin 11.3 GM/DL (12.0-16.0); Immature Granulocytes Absolute 0.17 #; Lymphocytes # 1.1 10*3/uL (1.4-4.0); Lymphocytes % 6.2 % (21.3-54.2); Mean Corpuscular HGB Conc 33.7 GM/DL (32-36); Mean Corpuscular Volume 109.8 FL (87-102); Mean Platelet Volume 9.6 FL (9.6-12.0); Monocytes % 10.8 % (1.7-12.7); NRBC # 0.02 10*3/uL; Neutrophils % 81.4 % (38.7-73.9); Platelet Count 250 T/CUMM (130-400); Red Blood Count 3.05 MC/CUMM (3.8-5.5); White Blood Count 17.8 T/CUMM (4-12)
[2018-07-18 09:58] LABS: Albumin 3.4 G/DL (3.4-5.0); Bilirubin,Total 1.7 MG/DL (0.2-1.0); Calcium 8.7 MG/DL (8.5-10.1); Osmolality,Calculated 278.5 MOS/KG (273-304); Total Protein 6.9 G/DL (6.4-8.3)
[2018-07-18 10:35] LABS: Sedimentation Rate-Westergren 37 MM/HR (0-30)
[2018-07-18] MEDS ORDERED: cefTRIAXone 1,000 MG in SODIUM CHLORIDE 0.9% 100 ML IV STA (10:41)
[2018-07-18] MEDS ORDERED: ONDANSETRON 4 MG/2 ML VIAL IV PRN (11:10)
[2018-07-18] MEDS ORDERED: MAGNESIUM SULF RIDER 4 GM in PREMIX 1 EACH IV PRN (11:15)
[2018-07-18] MEDS ORDERED: MAGNESIUM SULF RIDER 2 GM in PREMIX 1 EACH IV PRN (11:15)
[2018-07-18] MEDS ORDERED: SODIUM CHLORIDE 0.9% 1,000 ML IV SCH (11:30)
[2018-07-18] MEDS: POTASSIUM CHLORIDE 20 MEQ TABLET PO PRN ×4 (12:36→20:47)
[2018-07-18] MEDS ORDERED: cefTRIAXone 1,000 MG in SYRINGE 1 EACH IV ONE (13:22)
[2018-07-18 16:52] LABS: Folate 10.4 NG/ML (5.4-24.0)
[2018-07-18] MEDS: MORPHINE 4 MG/1 ML VIAL IV PRN (17:01)
[2018-07-18] MEDS: SODIUM CHLORIDE 0.45% 1,000 ML IV SCH (17:02)
[2018-07-18] MEDS: FERROUS SULFATE 325 MG TABLET PO SCH (17:02)
[2018-07-18] MEDS: CARVEDILOL 6.25 MG TABLET PO SCH (20:47)
[2018-07-19] MEDS: MORPHINE 4 MG/1 ML VIAL IV PRN (00:30)
[2018-07-19] MEDS: SODIUM CHLORIDE 0.45% 1,000 ML IV SCH ×2 (02:47→14:28)
[2018-07-19 04:44] LABS: Basophils # 0.1 10*3/uL (0.0-0.2); Basophils % 0.5 % (0.0-0.8); Eosinophils # 0.1 10*3/uL (0.0-0.87); Eosinophils % 0.5 % (0.00-10.9); Hematocrit 32.6 VOL% (35.7-47.0); Hemoglobin 11.1 GM/DL (12.0-16.0); Immature Granulocytes % 0.9 %; Immature Granulocytes Absolute 0.18 #; Lymphocytes # 1.7 10*3/uL (1.4-4.0); Lymphocytes % 8.8 % (21.3-54.2); Mean Corpuscular Volume 110.5 FL (87-102); Mean Platelet Volume 9.6 FL (9.6-12.0); Monocytes % 15.4 % (1.7-12.7); NRBC # 0.02 10*3/uL; Neutrophils % 73.9 % (38.7-73.9); Platelet Count 230 T/CUMM (130-400); Red Blood Count 2.95 MC/CUMM (3.8-5.5); Red Cell Distribution Width 19.7 % (9.3-17.3); White Blood Count 19.1 T/CUMM (4-12)
[2018-07-19 05:10] LABS: Calcium 8.5 MG/DL (8.5-10.1); Osmolality,Calculated 269.1 MOS/KG (273-304); Risk Ratio 2.21; Thyroid Stimulating Hormone 1.31 uIU/ml (0.358-3.74); VLDL CHOLESTEROL 19.6 MG/DL
[2018-07-19 06:01] LABS: Anisocytosis 1+
[2018-07-19 06:02] LABS: Macrocytosis 1+
[2018-07-19 06:03] LABS: Howell-Jolly Bodies Few; Platelet Estimate Normal; Target Cells Slight
[2018-07-19] MEDS: amLODIPine 5 MG TABLET PO SCH (08:22)
[2018-07-19] MEDS: ISOSORBIDE MONONITRATE 30 MG TABLET PO SCH (08:22)
[2018-07-19] MEDS: CARVEDILOL 6.25 MG TABLET PO SCH ×2 (08:23→20:13)
[2018-07-19] MEDS: FERROUS SULFATE 325 MG TABLET PO SCH ×2 (08:23→17:42)
[2018-07-19] MEDS: FLUoxetine 20 MG CAPSULE PO SCH (08:23)
[2018-07-19] MEDS: PANTOPRAZOLE 40 MG TABLET PO SCH (08:23)
[2018-07-19] MEDS ORDERED: cefTRIAXone 1,000 MG in SYRINGE 1 EACH IV SCH (09:00)
[2018-07-19] MEDS ORDERED: cefTRIAXone 2,000 MG in SYRINGE 1 EACH IV SCH (09:00)
[2018-07-19] MEDS ORDERED: cefTRIAXone 1,000 MG in SODIUM CHLORIDE 0.9% 100 ML IV SCH (10:00)
[2018-07-19] MEDS: MEROPENEM 1,000 MG in SODIUM CHLORIDE 0.9% 100 ML IV SCH ×2 (11:30→17:42)
[2018-07-19] MEDS: SODIUM CHLORIDE 0.9% 1,000 ML IV SCH (15:41)
[2018-07-19] MEDS: DICLOFENAC 1% GEL 100 GM TUBE TOP SCH ×2 (15:41→20:15)
[2018-07-20 02:24] LABS: Basophils # 0.1 10*3/uL (0.0-0.2); Basophils % 0.6 % (0.0-0.8); Eosinophils # 0.2 10*3/uL (0.0-0.87); Eosinophils % 1.1 % (0.00-10.9); Hematocrit 28.7 VOL% (35.7-47.0); Hemoglobin 9.6 GM/DL (12.0-16.0); Immature Granulocytes % 1.1 %; Immature Granulocytes Absolute 0.21 #; Lymphocytes # 1.5 10*3/uL (1.4-4.0); Lymphocytes % 7.5 % (21.3-54.2); Mean Corpuscular HGB Conc 33.4 GM/DL (32-36); Mean Corpuscular Volume 112.1 FL (87-102); Mean Platelet Volume 9.7 FL (9.6-12.0); Monocytes % 15.3 % (1.7-12.7); Neutrophils % 74.4 % (38.7-73.9); Platelet Count 217 T/CUMM (130-400); Red Blood Count 2.56 MC/CUMM (3.8-5.5); Red Cell Distribution Width 18.9 % (9.3-17.3); White Blood Count 19.7 T/CUMM (4-12)
[2018-07-20] MEDS: SODIUM CHLORIDE 0.9% 1,000 ML IV SCH ×2 (02:28→16:47)
[2018-07-20] MEDS: MEROPENEM 1,000 MG in SODIUM CHLORIDE 0.9% 100 ML IV SCH ×3 (02:29→17:58)
[2018-07-20 02:49] LABS: Calcium 8.4 MG/DL (8.5-10.1)
[2018-07-20 03:28] LABS: Anisocytosis 1+
[2018-07-20 03:29] LABS: Platelet Estimate Adequate
[2018-07-20] MEDS: amLODIPine 5 MG TABLET PO SCH (09:01)
[2018-07-20] MEDS: POTASSIUM CHLORIDE 20 MEQ TABLET PO PRN ×3 (09:01→15:35)
[2018-07-20] MEDS: ISOSORBIDE MONONITRATE 30 MG TABLET PO SCH (09:01)
[2018-07-20] MEDS: PANTOPRAZOLE 40 MG TABLET PO SCH (09:01)
[2018-07-20] MEDS: FLUoxetine 20 MG CAPSULE PO SCH (09:01)
[2018-07-20] MEDS: CARVEDILOL 6.25 MG TABLET PO SCH ×2 (09:02→20:58)
[2018-07-20] MEDS: DICLOFENAC 1% GEL 100 GM TUBE TOP SCH ×3 (09:03→20:59)
[2018-07-20] MEDS: ENOXAPARIN 40 MG/0.4 ML SYRINGE SUBCUT SCH (09:03)
[2018-07-20] MEDS: LORazepam 0.5 MG TABLET PO PRN (09:04)
[2018-07-20] MEDS: FERROUS SULFATE 325 MG TABLET PO SCH ×2 (09:08→17:59)
[2018-07-20] MEDS: ALUMINUM/MAGNES/SIMETH MAX STR 30 ML UDCUP PO SCH (11:40)
[2018-07-21] MEDS: MEROPENEM 1,000 MG in SODIUM CHLORIDE 0.9% 100 ML IV SCH (03:08)
[2018-07-21 04:53] LABS: Hematocrit 29.2 VOL% (35.7-47.0); Hemoglobin 9.5 GM/DL (12.0-16.0); Mean Corpuscular HGB Conc 32.5 GM/DL (32-36); Mean Corpuscular Volume 114.5 FL (87-102); Red Blood Count 2.55 MC/CUMM (3.8-5.5); Red Cell Distribution Width 18.9 % (9.3-17.3); White Blood Count 16.7 T/CUMM (4-12)
[2018-07-21 04:54] LABS: Basophils # 0.1 10*3/uL (0.0-0.2); Basophils % 0.7 % (0.0-0.8); Eosinophils # 0.6 10*3/uL (0.0-0.87); Eosinophils % 3.5 % (0.00-10.9); Immature Granulocytes % 1.1 %; Immature Granulocytes Absolute 0.19 #; Lymphocytes # 2.2 10*3/uL (1.4-4.0); Lymphocytes % 12.9 % (21.3-54.2); Mean Platelet Volume 9.9 FL (9.6-12.0); Monocytes % 14.7 % (1.7-12.7); Neutrophils % 67.1 % (38.7-73.9); Platelet Count 282 T/CUMM (130-400)
[2018-07-21 05:15] LABS: Hypochromasia 1+; Platelet Estimate Adequate
[2018-07-21 05:16] LABS: Howell-Jolly Bodies Few
[2018-07-21 05:18] LABS: Calcium 8.6 MG/DL (8.5-10.1); Osmolality,Calculated 272.7 MOS/KG (273-304)
[2018-07-21] MEDS: SODIUM CHLORIDE 0.9% 1,000 ML IV SCH ×2 (07:43→21:06)
[2018-07-21] MEDS: AMOXICILLIN/CLAV 500 MG TABLET PO SCH ×2 (09:50→21:07)
[2018-07-21] MEDS: ENOXAPARIN 40 MG/0.4 ML SYRINGE SUBCUT SCH (09:50)
[2018-07-21] MEDS: FLUoxetine 20 MG CAPSULE PO SCH (09:50)
[2018-07-21] MEDS: CARVEDILOL 6.25 MG TABLET PO SCH ×2 (09:50→21:07)
[2018-07-21] MEDS: PANTOPRAZOLE 40 MG TABLET PO SCH (09:50)
[2018-07-21] MEDS: FERROUS SULFATE 325 MG TABLET PO SCH ×2 (09:50→16:40)
[2018-07-21] MEDS: amLODIPine 5 MG TABLET PO SCH (09:50)
[2018-07-21] MEDS: ISOSORBIDE MONONITRATE 30 MG TABLET PO SCH (09:50)
[2018-07-21] MEDS: DICLOFENAC 1% GEL 100 GM TUBE TOP SCH ×3 (09:51→21:13)
[2018-07-21] MEDS: ALUMINUM/MAGNES/SIMETH MAX STR 30 ML UDCUP PO SCH (13:00)
[2018-07-21] MEDS: LORazepam 0.5 MG TABLET PO PRN (16:39)
[2018-07-22] MEDS ORDERED: POLYETHYLENE GLYCOL POWDER 17 GM PACK PO SCH (09:00)
[2018-07-22] MEDS: ISOSORBIDE MONONITRATE 30 MG TABLET PO SCH (09:37)
[2018-07-22] MEDS: FERROUS SULFATE 325 MG TABLET PO SCH ×2 (09:37→16:15)
[2018-07-22] MEDS: FLUoxetine 20 MG CAPSULE PO SCH (09:37)
[2018-07-22] MEDS: PANTOPRAZOLE 40 MG TABLET PO SCH (09:38)
[2018-07-22] MEDS: DICLOFENAC 1% GEL 100 GM TUBE TOP SCH ×2 (09:38→14:39)
[2018-07-22] MEDS: ENOXAPARIN 40 MG/0.4 ML SYRINGE SUBCUT SCH (09:38)
[2018-07-22] MEDS: CARVEDILOL 6.25 MG TABLET PO SCH (09:38)
[2018-07-22] MEDS: AMOXICILLIN/CLAV 500 MG TABLET PO SCH (09:38)
[2018-07-22] MEDS: amLODIPine 5 MG TABLET PO SCH (09:38)
[2018-07-22] MEDS: SODIUM CHLORIDE 0.9% 1,000 ML IV SCH (09:39)
[2018-07-22] MEDS: ALUMINUM/MAGNES/SIMETH MAX STR 30 ML UDCUP PO SCH (12:27)
[2018-07-22] MEDS: LORazepam 0.5 MG TABLET PO PRN (16:14)
[2018-07-22 16:50] VITALS: BP 156/74
== END 2018-07-22 17:08 | disposition swing bed (61) | DRG 689 ==
LOC: EDUNIT# → N.ED 08:17 → N.EDINP 11:10 → SUATTDRO 11:10 → SUPCPDRO 11:10 → N.4E 16:23
PROVIDERS: ADMIT Internal Medicine; ATTEND Internal Medicine

== ENCOUNTER 2018-10-07 07:23 | Inpatient (IN) ==
[2018-10-07] MEDS ORDERED: ONDANSETRON 4 MG/2 ML VIAL IV STA (07:49)
[2018-10-07] MEDS ORDERED: SODIUM CHLORIDE 0.9% 1,000 ML IV STA (07:49)
[2018-10-07 09:02] LABS: Albumin 3.6 G/DL (3.4-5.0); Bilirubin,Total 1.1 MG/DL (0.2-1.0); Calcium 8.4 MG/DL (8.5-10.1); Osmolality,Calculated 277.7 MOS/KG (273-304); Total Protein 7.3 G/DL (6.4-8.3)
[2018-10-07 09:18] LABS: Basophils % 0.8 % (0.0-0.8); Eosinophils % 0.6 % (0.00-10.9); Hematocrit 28.6 VOL% (35.7-47.0); Hemoglobin 9.9 GM/DL (12.0-16.0); Immature Granulocytes % 1.6 %; Immature Granulocytes Absolute 0.08 #; Lymphocytes # 1.1 10*3/uL (1.4-4.0); Lymphocytes % 22.7 % (21.3-54.2); Mean Corpuscular HGB Conc 34.6 GM/DL (32-36); Mean Corpuscular Volume 100.4 FL (87-102); Mean Platelet Volume 11.9 FL (9.6-12.0); Monocytes % 3.2 % (1.7-12.7); Neutrophils % 71.1 % (38.7-73.9); Red Blood Count 2.85 MC/CUMM (3.8-5.5); Red Cell Distribution Width 18.8 % (9.3-17.3); White Blood Count 4.9 T/CUMM (4-12)
[2018-10-07 09:19] LABS: Platelet Count 86 T/CUMM (130-400)
[2018-10-07 09:52] LABS: Band Neutrophils 3 % (0-10); Hypochromasia 1+; Lymphocytes 18 % (20-55); Platelet Estimate Decreased; Segmented Neutrophils 78 % (50-85); Total Cells Counted 100
[2018-10-07 11:57] LABS: Apearance,Urine Slightly Hazy (Clear); Bilirubin,Urine Negative (Negative); Blood, Urine Small mg/dL (Negative); Glucose,Urine (UA) Negative (Negative); Ketones,Urine Negative (Negative); Mucus,Urine Occasional /LPF (Occasional); Nitrite,Urine Negative (Negative); Protein,Urine 30 MG/DL; RBC,Urine 9 /HPF (0-4); Squamous Epithelial Cell,Urine Occasional /HPF (0-10); Urine Color Yellow (Yellow); Urine Specific Gravity 1.021 (1.001-1.035); Urine Urobilinogen < 2.0 EU/DL (0.2-1.0); WBC,Urine 36 /HPF (0-6)
[2018-10-07] MEDS ORDERED: PROMETHAZINE 25 MG/1 ML VIAL IM PRN (13:39)
[2018-10-07] MEDS ORDERED: POTASSIUM CHLORIDE 20 MEQ TABLET PO ONE (13:44)
[2018-10-07] MEDS ORDERED: MAGNESIUM SULF RIDER 4 GM in PREMIX 1 EACH IV PRN (13:45)
[2018-10-07] MEDS ORDERED: ENOXAPARIN 30 MG/0.3 ML SYRINGE SUBCUT SCH (14:00)
[2018-10-07] MEDS: POTASSIUM CHLORIDE RIDER 10 MEQ in PREMIX 1 EACH IV PRN ×2 (14:17→17:48)
[2018-10-07] MEDS: cefTRIAXone 1,000 MG in SYRINGE 1 EACH IV SCH (17:40)
[2018-10-07] MEDS: DEXTROSE 5% NACL 0.9% 1,000 ML IV SCH (17:48)
[2018-10-07] MEDS: CARVEDILOL 6.25 MG TABLET PO SCH (21:35)
[2018-10-07] MEDS: FERROUS SULFATE 325 MG TABLET PO SCH (21:35)
[2018-10-07] MEDS: ENOXAPARIN 30 MG/0.3 ML SYRINGE SUBCUT SCH (21:38)
[2018-10-07] MEDS: CHOLESTYRAMINE 4 GM PACK PO SCH (21:38)
[2018-10-07] MEDS: MAGNESIUM SULF RIDER 2 GM in PREMIX 1 EACH IV PRN (21:42)
[2018-10-07] MEDS: ONDANSETRON 4 MG/2 ML VIAL IV PRN (22:00)
[2018-10-08] MEDS: POTASSIUM CHLORIDE RIDER 10 MEQ in PREMIX 1 EACH IV PRN ×7 (00:39→15:28)
[2018-10-08] MEDS: DEXTROSE 5% NACL 0.9% 1,000 ML IV SCH ×2 (03:24→13:58)
[2018-10-08 04:26] LABS: Basophils % 1.4 % (0.0-0.8); Eosinophils # 0.1 10*3/uL (0.0-0.87); Eosinophils % 4.7 % (0.00-10.9); Hematocrit 28.2 VOL% (35.7-47.0); Hemoglobin 9.4 GM/DL (12.0-16.0); Immature Granulocytes % 0.9 %; Immature Granulocytes Absolute 0.02 #; Lymphocytes # 0.9 10*3/uL (1.4-4.0); Lymphocytes % 43.3 % (21.3-54.2); Mean Corpuscular HGB Conc 33.3 GM/DL (32-36); Mean Corpuscular Volume 102.9 FL (87-102); Mean Platelet Volume 12.3 FL (9.6-12.0); Monocytes % 5.6 % (1.7-12.7); Neutrophils % 44.1 % (38.7-73.9); Platelet Count 83 T/CUMM (130-400); Red Blood Count 2.74 MC/CUMM (3.8-5.5); Red Cell Distribution Width 19.1 % (9.3-17.3); White Blood Count 2.2 T/CUMM (4-12)
[2018-10-08 04:44] LABS: Albumin 2.9 G/DL (3.4-5.0); Bilirubin,Total 0.7 MG/DL (0.2-1.0); Calcium 7.7 MG/DL (8.5-10.1); Osmolality,Calculated 288.4 MOS/KG (273-304); Total Protein 6.2 G/DL (6.4-8.3)
[2018-10-08 04:59] LABS: Band Neutrophils 2 % (0-10); Eosinophils 6 % (0-10); Hypochromasia 1+; Lymphocytes 54 % (20-55); Ovalocytes Slight; Platelet Estimate Decreased; Segmented Neutrophils 37 % (50-85); Total Cells Counted 100
[2018-10-08 05:00] LABS: Atypical Lymphocytes Few
[2018-10-08] MEDS ORDERED: POTASSIUM CHLORIDE 20 MEQ TABLET PO ONE ×2 (07:53→17:51)
[2018-10-08] MEDS ORDERED: LOPERAMIDE 2 MG CAPSULE PO SCH (09:00)
[2018-10-08] MEDS: FERROUS SULFATE 325 MG TABLET PO SCH ×2 (09:09→17:09)
[2018-10-08] MEDS: CHOLESTYRAMINE 4 GM PACK PO SCH ×2 (09:09→21:55)
[2018-10-08] MEDS: FLUoxetine 20 MG CAPSULE PO SCH (09:09)
[2018-10-08] MEDS: CARVEDILOL 6.25 MG TABLET PO SCH ×2 (09:10→21:55)
[2018-10-08] MEDS: ISOSORBIDE MONONITRATE 30 MG TABLET PO SCH (09:10)
[2018-10-08] MEDS: amLODIPine 5 MG TABLET PO SCH (09:10)
[2018-10-08] MEDS: PANTOPRAZOLE 40 MG TABLET PO SCH (09:24)
[2018-10-08] MEDS: cefTRIAXone 1,000 MG in SYRINGE 1 EACH IV SCH (15:50)
[2018-10-08] MEDS: ONDANSETRON 4 MG/2 ML VIAL IV PRN (15:50)
[2018-10-08] MEDS ORDERED: POTASSIUM CHLORIDE RIDER 10 MEQ in PREMIX 1 EACH IV SCH (18:00)
[2018-10-08] MEDS: metroNIDAZOLE INJ 500 MG in PREMIX 1 EACH IV SCH (18:39)
[2018-10-08] MEDS: ENOXAPARIN 30 MG/0.3 ML SYRINGE SUBCUT SCH (21:54)
[2018-10-08] MEDS: LORazepam 1 MG TABLET PO SCH (21:55)
[2018-10-08] MEDS: DESITIN 4OZ/NYSTATIN 15 GRAM MIXTURE PASTE TOP SCH (21:55)
[2018-10-09] MEDS: LEVOFLOXACIN INJ 500 MG in PREMIX 1 EACH IV SCH ×2 (01:25→21:35)
[2018-10-09] MEDS: DEXTROSE 5% NACL 0.9% 1,000 ML IV SCH ×4 (01:28→16:44)
[2018-10-09] MEDS: metroNIDAZOLE INJ 500 MG in PREMIX 1 EACH IV SCH ×3 (03:09→17:45)
[2018-10-09 06:09] LABS: Calcium 7.7 MG/DL (8.5-10.1); Osmolality,Calculated 285.1 MOS/KG (273-304)
[2018-10-09] MEDS: FLUoxetine 20 MG CAPSULE PO SCH (09:17)
[2018-10-09] MEDS: PANTOPRAZOLE 40 MG TABLET PO SCH (09:17)
[2018-10-09] MEDS: FERROUS SULFATE 325 MG TABLET PO SCH ×2 (09:17→17:45)
[2018-10-09] MEDS: LORazepam 1 MG TABLET PO SCH (09:17)
[2018-10-09] MEDS: CHOLESTYRAMINE 4 GM PACK PO SCH ×2 (09:17→21:35)
[2018-10-09] MEDS: ISOSORBIDE MONONITRATE 30 MG TABLET PO SCH (09:18)
[2018-10-09] MEDS: CARVEDILOL 6.25 MG TABLET PO SCH ×2 (09:18→21:34)
[2018-10-09] MEDS: DIPHENOXYLATE/ATROPINE 2.5-0.025 MG TABLET PO SCH ×3 (09:18→21:34)
[2018-10-09] MEDS: DESITIN 4OZ/NYSTATIN 15 GRAM MIXTURE PASTE TOP SCH ×2 (09:18→21:36)
[2018-10-09] MEDS: amLODIPine 5 MG TABLET PO SCH (09:18)
[2018-10-09] MEDS: ENOXAPARIN 30 MG/0.3 ML SYRINGE SUBCUT SCH (21:34)
[2018-10-10] MEDS: metroNIDAZOLE INJ 500 MG in PREMIX 1 EACH IV SCH ×3 (03:45→18:37)
[2018-10-10 05:51] LABS: Calcium 7.3 MG/DL (8.5-10.1); Osmolality,Calculated 289.6 MOS/KG (273-304)
[2018-10-10] MEDS: DEXTROSE 5% NACL 0.9% 1,000 ML IV SCH ×2 (09:16→09:18)
[2018-10-10] MEDS: FERROUS SULFATE 325 MG TABLET PO SCH ×2 (09:20→18:00)
[2018-10-10] MEDS: CARVEDILOL 6.25 MG TABLET PO SCH ×2 (09:20→20:36)
[2018-10-10] MEDS: PANTOPRAZOLE 40 MG TABLET PO SCH (09:20)
[2018-10-10] MEDS: FLUoxetine 20 MG CAPSULE PO SCH (09:20)
[2018-10-10] MEDS: ISOSORBIDE MONONITRATE 30 MG TABLET PO SCH (09:20)
[2018-10-10] MEDS: amLODIPine 5 MG TABLET PO SCH (09:20)
[2018-10-10] MEDS: LORazepam 1 MG TABLET PO SCH (09:20)
[2018-10-10] MEDS: DIPHENOXYLATE/ATROPINE 2.5-0.025 MG TABLET PO SCH (09:20)
[2018-10-10] MEDS: CHOLESTYRAMINE 4 GM PACK PO SCH ×2 (09:21→20:36)
[2018-10-10] MEDS: DESITIN 4OZ/NYSTATIN 15 GRAM MIXTURE PASTE TOP SCH ×2 (09:21→20:33)
[2018-10-10] MEDS: DEXT 5% NACL 0.45% KCL 20 MEQ 20 MEQ/1,000 ML BAG IV SCH (09:25)
[2018-10-10] MEDS ORDERED: FLUCONAZOLE INJ 400 MG in PREMIX 1 EACH IV ONE (10:00)
[2018-10-10] MEDS: POTASSIUM CHLORIDE RIDER 10 MEQ in PREMIX 1 EACH IV PRN ×4 (14:18→23:57)
[2018-10-10] MEDS: LEVOFLOXACIN INJ 500 MG in PREMIX 1 EACH IV SCH (20:31)
[2018-10-10] MEDS: ENOXAPARIN 30 MG/0.3 ML SYRINGE SUBCUT SCH (20:33)
[2018-10-11] MEDS: POTASSIUM CHLORIDE RIDER 10 MEQ in PREMIX 1 EACH IV PRN (01:28)
[2018-10-11] MEDS: metroNIDAZOLE INJ 500 MG in PREMIX 1 EACH IV SCH ×3 (02:38→18:10)
[2018-10-11 05:11] LABS: Basophils % 1.5 % (0.0-0.8); Eosinophils # 0.2 10*3/uL (0.0-0.87); Eosinophils % 16.7 % (0.00-10.9); Hematocrit 22.3 VOL% (35.7-47.0); Hemoglobin 7.7 GM/DL (12.0-16.0); Immature Granulocytes % 0.8 %; Immature Granulocytes Absolute 0.01 #; Lymphocytes # 0.9 10*3/uL (1.4-4.0); Lymphocytes % 67.4 % (21.3-54.2); Mean Corpuscular HGB Conc 34.5 GM/DL (32-36); Mean Corpuscular Volume 102.3 FL (87-102); Mean Platelet Volume 10.7 FL (9.6-12.0); Monocytes % 11.4 % (1.7-12.7); Neutrophils % 2.2 % (38.7-73.9); Platelet Count 168 T/CUMM (130-400); Red Blood Count 2.18 MC/CUMM (3.8-5.5); Red Cell Distribution Width 19.8 % (9.3-17.3); White Blood Count 1.3 T/CUMM (4-12)
[2018-10-11 05:45] LABS: Calcium 7.2 MG/DL (8.5-10.1); Osmolality,Calculated 280.1 MOS/KG (273-304)
[2018-10-11 06:10] LABS: Anisocytosis 1+; Eosinophils 18 % (0-10); Hypochromasia 1+; Lymphocytes 66 % (20-55); Segmented Neutrophils 6 % (50-85); Total Cells Counted 100
[2018-10-11 06:11] LABS: Acanthocytes Few; Platelet Estimate Adequate; Target Cells Few
[2018-10-11] MEDS: DESITIN 4OZ/NYSTATIN 15 GRAM MIXTURE PASTE TOP SCH ×2 (07:30→21:48)
[2018-10-11] MEDS ORDERED: SODIUM CHLORIDE 0.9% 1,000 ML IV PRN (10:10)
[2018-10-11] MEDS: LORazepam 1 MG TABLET PO SCH (10:56)
[2018-10-11] MEDS: FERROUS SULFATE 325 MG TABLET PO SCH ×2 (10:56→17:35)
[2018-10-11] MEDS: PANTOPRAZOLE 40 MG TABLET PO SCH (10:56)
[2018-10-11] MEDS: FLUoxetine 20 MG CAPSULE PO SCH (10:56)
[2018-10-11] MEDS: amLODIPine 5 MG TABLET PO SCH (10:57)
[2018-10-11] MEDS: CHOLESTYRAMINE 4 GM PACK PO SCH ×2 (10:57→20:58)
[2018-10-11] MEDS: DIPHENOXYLATE/ATROPINE 2.5-0.025 MG TABLET PO SCH (10:57)
[2018-10-11] MEDS: ISOSORBIDE MONONITRATE 30 MG TABLET PO SCH (10:57)
[2018-10-11] MEDS: CARVEDILOL 6.25 MG TABLET PO SCH (10:57)
[2018-10-11] MEDS: MAGNESIUM SULF RIDER 2 GM in PREMIX 1 EACH IV PRN ×2 (13:20→16:08)
[2018-10-11] MEDS: DEXT 5% NACL 0.45% KCL 20 MEQ 20 MEQ/1,000 ML BAG IV SCH ×2 (19:23→20:56)
[2018-10-11] MEDS: ENOXAPARIN 30 MG/0.3 ML SYRINGE SUBCUT SCH (20:57)
[2018-10-11] MEDS: CARVEDILOL 3.125 MG TABLET PO SCH (20:58)
[2018-10-11] MEDS: LEVOFLOXACIN INJ 500 MG in PREMIX 1 EACH IV SCH (20:58)
[2018-10-12] MEDS: metroNIDAZOLE INJ 500 MG in PREMIX 1 EACH IV SCH ×2 (02:27→09:52)
[2018-10-12 06:14] LABS: Basophils % 0.8 % (0.0-0.8); Eosinophils # 0.2 10*3/uL (0.0-0.87); Eosinophils % 18.3 % (0.00-10.9); Hematocrit 29.1 VOL% (35.7-47.0); Immature Granulocytes % 2.5 %; Immature Granulocytes Absolute 0.03 #; Lymphocytes # 0.7 10*3/uL (1.4-4.0); Lymphocytes % 60.8 % (21.3-54.2); Mean Corpuscular HGB Conc 34.4 GM/DL (32-36); Mean Corpuscular Volume 95.7 FL (87-102); Mean Platelet Volume 10.4 FL (9.6-12.0); Monocytes % 15.8 % (1.7-12.7); Neutrophils % 1.8 % (38.7-73.9); Platelet Count 242 T/CUMM (130-400); Red Blood Count 3.04 MC/CUMM (3.8-5.5); Red Cell Distribution Width 20.6 % (9.3-17.3); White Blood Count 1.2 T/CUMM (4-12)
[2018-10-12 06:40] LABS: Calcium 7.5 MG/DL (8.5-10.1); Osmolality,Calculated 277.4 MOS/KG (273-304)
[2018-10-12 08:01] LABS: Eosinophils 16 % (0-10); Lymphocytes 60 % (20-55); Segmented Neutrophils 8 % (50-85)
[2018-10-12 08:02] LABS: Platelet Estimate Normal; Polychromasia Slight; Total Cells Counted 100
[2018-10-12] MEDS ORDERED: FILGRASTIM-SNDZ 300 MCG/0.5 ML SYRINGE SUBCUT SCH (09:00)
[2018-10-12] MEDS: FERROUS SULFATE 325 MG TABLET PO SCH (09:52)
[2018-10-12] MEDS: LORazepam 1 MG TABLET PO SCH (09:52)
[2018-10-12] MEDS: DIPHENOXYLATE/ATROPINE 2.5-0.025 MG TABLET PO SCH (09:52)
[2018-10-12] MEDS: FLUoxetine 20 MG CAPSULE PO SCH (09:52)
[2018-10-12] MEDS: PANTOPRAZOLE 40 MG TABLET PO SCH (09:53)
[2018-10-12] MEDS: CARVEDILOL 3.125 MG TABLET PO SCH ×2 (09:53→16:29)
[2018-10-12] MEDS: FILGRASTIM-SNDZ 300 MCG/0.5 ML SYRINGE SUBCUT SCH (09:53)
[2018-10-12] MEDS: DESITIN 4OZ/NYSTATIN 15 GRAM MIXTURE PASTE TOP SCH ×2 (09:53→20:10)
[2018-10-12] MEDS: CHOLESTYRAMINE 4 GM PACK PO SCH ×2 (09:53→20:09)
[2018-10-12] MEDS: amLODIPine 5 MG TABLET PO SCH (09:53)
[2018-10-12] MEDS: ISOSORBIDE MONONITRATE 30 MG TABLET PO SCH (09:53)
[2018-10-12] MEDS: POTASSIUM CHLORIDE RIDER 10 MEQ in PREMIX 1 EACH IV PRN ×3 (13:51→16:31)
[2018-10-12] MEDS: DEXT 5% NACL 0.45% KCL 20 MEQ 20 MEQ/1,000 ML BAG IV SCH (15:02)
[2018-10-12] MEDS: LEVOFLOXACIN INJ 500 MG in PREMIX 1 EACH IV SCH (19:49)
[2018-10-12] MEDS: ENOXAPARIN 30 MG/0.3 ML SYRINGE SUBCUT SCH (20:09)
[2018-10-13 06:55] LABS: Basophils % 1.2 % (0.0-0.8); Eosinophils # 0.3 10*3/uL (0.0-0.87); Eosinophils % 16.1 % (0.00-10.9); Hematocrit 28.6 VOL% (35.7-47.0); Hemoglobin 10.1 GM/DL (12.0-16.0); Immature Granulocytes % 6.5 %; Immature Granulocytes Absolute 0.11 #; Lymphocytes % 60.1 % (21.3-54.2); Mean Corpuscular HGB Conc 35.3 GM/DL (32-36); Mean Corpuscular Volume 95.3 FL (87-102); Monocytes % 11.9 % (1.7-12.7); NRBC # 0.02 10*3/uL; Neutrophils % 4.2 % (38.7-73.9); Platelet Count 286 T/CUMM (130-400); Red Cell Distribution Width 21.2 % (9.3-17.3); White Blood Count 1.7 T/CUMM (4-12)
[2018-10-13 07:16] LABS: Calcium 7.4 MG/DL (8.5-10.1); Osmolality,Calculated 276.4 MOS/KG (273-304)
[2018-10-13 07:18] LABS: Band Neutrophils 1 % (0-10); Eosinophils 22 % (0-10); Hypochromasia 1+; Lymphocytes 61 % (20-55); Nucleated Red Blood Cells 1 (0-5); Platelet Estimate Adequate; Segmented Neutrophils 7 % (50-85); Total Cells Counted 100
[2018-10-13] MEDS: DEXT 5% NACL 0.45% KCL 20 MEQ 20 MEQ/1,000 ML BAG IV SCH ×3 (08:12→22:51)
[2018-10-13] MEDS: PANTOPRAZOLE 40 MG TABLET PO SCH (09:17)
[2018-10-13] MEDS: DIPHENOXYLATE/ATROPINE 2.5-0.025 MG TABLET PO SCH ×3 (09:17→20:43)
[2018-10-13] MEDS: amLODIPine 5 MG TABLET PO SCH (09:17)
[2018-10-13] MEDS: CARVEDILOL 3.125 MG TABLET PO SCH ×2 (09:17→17:32)
[2018-10-13] MEDS: FLUoxetine 20 MG CAPSULE PO SCH (09:17)
[2018-10-13] MEDS: ISOSORBIDE MONONITRATE 30 MG TABLET PO SCH (09:17)
[2018-10-13] MEDS: DESITIN 4OZ/NYSTATIN 15 GRAM MIXTURE PASTE TOP SCH ×2 (09:18→20:45)
[2018-10-13] MEDS: CHOLESTYRAMINE 4 GM PACK PO SCH ×2 (09:18→20:43)
[2018-10-13] MEDS: FILGRASTIM-SNDZ 300 MCG/0.5 ML SYRINGE SUBCUT SCH (09:18)
[2018-10-13] MEDS: POTASSIUM CHLORIDE RIDER 10 MEQ in PREMIX 1 EACH IV PRN ×4 (09:29→12:21)
[2018-10-13] MEDS ORDERED: MAGNESIUM SULF RIDER 2 GM in PREMIX 1 EACH IV ONE (12:37)
[2018-10-13] MEDS: ACETAMINOPHEN 325 MG TABLET PO PRN (20:42)
[2018-10-13] MEDS: ENOXAPARIN 30 MG/0.3 ML SYRINGE SUBCUT SCH (20:43)
[2018-10-13] MEDS: LEVOFLOXACIN INJ 500 MG in PREMIX 1 EACH IV SCH (20:44)
[2018-10-14 06:28] LABS: Basophils # 0.1 10*3/uL (0.0-0.2); Basophils % 1.8 % (0.0-0.8); Eosinophils # 0.2 10*3/uL (0.0-0.87); Eosinophils % 7.1 % (0.00-10.9); Hematocrit 30.6 VOL% (35.7-47.0); Hemoglobin 10.7 GM/DL (12.0-16.0); Immature Granulocytes % 2.1 %; Immature Granulocytes Absolute 0.06 #; Lymphocytes # 1.2 10*3/uL (1.4-4.0); Lymphocytes % 40.6 % (21.3-54.2); Mean Corpuscular Volume 97.5 FL (87-102); Mean Platelet Volume 10.1 FL (9.6-12.0); Monocytes % 9.9 % (1.7-12.7); NRBC # 0.03 10*3/uL; Neutrophils % 38.5 % (38.7-73.9); Platelet Count 300 T/CUMM (130-400); Red Blood Count 3.14 MC/CUMM (3.8-5.5); Red Cell Distribution Width 22.4 % (9.3-17.3); White Blood Count 2.8 T/CUMM (4-12)
[2018-10-14 06:44] LABS: Calcium 7.6 MG/DL (8.5-10.1); Osmolality,Calculated 268.8 MOS/KG (273-304)
[2018-10-14 06:49] LABS: Anisocytosis 1+; Band Neutrophils 6 % (0-10); Eosinophils 6 % (0-10); Lymphocytes 42 % (20-55); Segmented Neutrophils 36 % (50-85); Total Cells Counted 100
[2018-10-14 06:50] LABS: Ovalocytes Few; Platelet Estimate Adequate; Target Cells Few
[2018-10-14] MEDS: FLUoxetine 20 MG CAPSULE PO SCH (08:26)
[2018-10-14] MEDS: FILGRASTIM-SNDZ 300 MCG/0.5 ML SYRINGE SUBCUT SCH (08:26)
[2018-10-14] MEDS: PANTOPRAZOLE 40 MG TABLET PO SCH (08:26)
[2018-10-14] MEDS: CHOLESTYRAMINE 4 GM PACK PO SCH ×2 (08:26→20:50)
[2018-10-14] MEDS: CARVEDILOL 3.125 MG TABLET PO SCH ×2 (08:26→17:24)
[2018-10-14] MEDS: amLODIPine 5 MG TABLET PO SCH (08:26)
[2018-10-14] MEDS: ISOSORBIDE MONONITRATE 30 MG TABLET PO SCH (08:26)
[2018-10-14] MEDS: DIPHENOXYLATE/ATROPINE 2.5-0.025 MG TABLET PO SCH ×2 (08:56→16:56)
[2018-10-14] MEDS: DESITIN 4OZ/NYSTATIN 15 GRAM MIXTURE PASTE TOP SCH ×2 (08:56→20:54)
[2018-10-14] MEDS: DEXT 5% NACL 0.45% KCL 20 MEQ 20 MEQ/1,000 ML BAG IV SCH (12:11)
[2018-10-14] MEDS ORDERED: DIPHENOXYLATE/ATROPINE 2.5-0.025 MG TABLET PO PRN (17:23)
[2018-10-14] MEDS: MYLANTA/LIDO VISC 2:1 300 ML BOTTLE SWISH/SWAL PRN (17:25)
[2018-10-14] MEDS: ENOXAPARIN 30 MG/0.3 ML SYRINGE SUBCUT SCH (20:50)
[2018-10-14] MEDS: LEVOFLOXACIN INJ 500 MG in PREMIX 1 EACH IV SCH (20:51)
[2018-10-15] MEDS: PANTOPRAZOLE 40 MG TABLET PO SCH (09:32)
[2018-10-15] MEDS: amLODIPine 5 MG TABLET PO SCH (09:32)
[2018-10-15] MEDS: CARVEDILOL 3.125 MG TABLET PO SCH ×2 (09:32→18:08)
[2018-10-15] MEDS: ISOSORBIDE MONONITRATE 30 MG TABLET PO SCH (09:32)
[2018-10-15] MEDS: FLUoxetine 20 MG CAPSULE PO SCH (09:32)
[2018-10-15] MEDS: FILGRASTIM-SNDZ 300 MCG/0.5 ML SYRINGE SUBCUT SCH (09:33)
[2018-10-15] MEDS: CHOLESTYRAMINE 4 GM PACK PO SCH ×2 (09:33→20:38)
[2018-10-15] MEDS: DESITIN 4OZ/NYSTATIN 15 GRAM MIXTURE PASTE TOP SCH ×2 (09:33→20:51)
[2018-10-15] MEDS: DEXT 5% NACL 0.45% KCL 20 MEQ 20 MEQ/1,000 ML BAG IV SCH ×2 (09:41→18:08)
[2018-10-15] MEDS: DIPHENOXYLATE/ATROPINE 2.5-0.025 MG TABLET PO SCH ×2 (14:23→20:37)
[2018-10-15] MEDS: ACETAMINOPHEN 325 MG TABLET PO PRN (20:37)
[2018-10-15] MEDS: ENOXAPARIN 30 MG/0.3 ML SYRINGE SUBCUT SCH (20:38)
[2018-10-15] MEDS: POTASSIUM CHLORIDE RIDER 10 MEQ in PREMIX 1 EACH IV PRN ×2 (21:44→23:27)
[2018-10-16 04:53] LABS: Basophils # 0.1 10*3/uL (0.0-0.2); Basophils % 0.4 % (0.0-0.8); Eosinophils # 0.1 10*3/uL (0.0-0.87); Eosinophils % 0.6 % (0.00-10.9); Hematocrit 30.5 VOL% (35.7-47.0); Hemoglobin 10.5 GM/DL (12.0-16.0); Immature Granulocytes % 10.9 %; Immature Granulocytes Absolute 2.08 #; Lymphocytes # 3.1 10*3/uL (1.4-4.0); Mean Corpuscular HGB Conc 34.4 GM/DL (32-36); Mean Corpuscular Volume 95.6 FL (87-102); Mean Platelet Volume 9.9 FL (9.6-12.0); Monocytes % 6.5 % (1.7-12.7); NRBC # 0.04 10*3/uL; Neutrophils % 65.6 % (38.7-73.9); Platelet Count 301 T/CUMM (130-400); Red Blood Count 3.19 MC/CUMM (3.8-5.5); Red Cell Distribution Width 22.5 % (9.3-17.3); White Blood Count 19.2 T/CUMM (4-12)
[2018-10-16 05:15] LABS: Band Neutrophils 5 % (0-10); Calcium 7.7 MG/DL (8.5-10.1); Lymphocytes 20 % (20-55); Nucleated Red Blood Cells 1 (0-5); Osmolality,Calculated 273.5 MOS/KG (273-304); Platelet Estimate Adequate; Segmented Neutrophils 72 % (50-85); Total Cells Counted 100
[2018-10-16 05:16] LABS: Hypochromasia 1+
[2018-10-16] MEDS: CHOLESTYRAMINE 4 GM PACK PO SCH ×2 (09:11→20:24)
[2018-10-16] MEDS: ISOSORBIDE MONONITRATE 30 MG TABLET PO SCH (09:12)
[2018-10-16] MEDS: DIPHENOXYLATE/ATROPINE 2.5-0.025 MG TABLET PO SCH ×3 (09:12→20:35)
[2018-10-16] MEDS: FILGRASTIM-SNDZ 300 MCG/0.5 ML SYRINGE SUBCUT SCH (09:12)
[2018-10-16] MEDS: CARVEDILOL 3.125 MG TABLET PO SCH ×2 (09:12→20:24)
[2018-10-16] MEDS: PANTOPRAZOLE 40 MG TABLET PO SCH ×2 (09:12→20:24)
[2018-10-16] MEDS: amLODIPine 5 MG TABLET PO SCH (09:12)
[2018-10-16] MEDS: FLUoxetine 20 MG CAPSULE PO SCH (09:12)
[2018-10-16] MEDS: DESITIN 4OZ/NYSTATIN 15 GRAM MIXTURE PASTE TOP SCH ×2 (09:13→20:25)
[2018-10-16] MEDS: MYLANTA/LIDO VISC 2:1 300 ML BOTTLE SWISH/SWAL PRN (09:14)
[2018-10-16] MEDS: DEXT 5% NACL 0.45% KCL 20 MEQ 20 MEQ/1,000 ML BAG IV SCH ×2 (10:07→20:46)
[2018-10-16] MEDS: ENOXAPARIN 30 MG/0.3 ML SYRINGE SUBCUT SCH (20:24)
[2018-10-17] MEDS: CARVEDILOL 3.125 MG TABLET PO SCH (09:22)
[2018-10-17] MEDS: DIPHENOXYLATE/ATROPINE 2.5-0.025 MG TABLET PO SCH (09:22)
[2018-10-17] MEDS: amLODIPine 5 MG TABLET PO SCH (09:22)
[2018-10-17] MEDS: ISOSORBIDE MONONITRATE 30 MG TABLET PO SCH (09:22)
[2018-10-17] MEDS: FLUoxetine 20 MG CAPSULE PO SCH (09:22)
[2018-10-17] MEDS: DESITIN 4OZ/NYSTATIN 15 GRAM MIXTURE PASTE TOP SCH (09:23)
[2018-10-17] MEDS: PANTOPRAZOLE 40 MG TABLET PO SCH (09:23)
[2018-10-17] MEDS: CHOLESTYRAMINE 4 GM PACK PO SCH (09:23)
[2018-10-17 12:14] VITALS: BP 120/60
== END 2018-10-17 14:26 | disposition swing bed (61) | DRG 682 ==
LOC: EDBD → EDUNIT# → N.EDINP 07:23 → N.ED 07:23 → OBSVTOIN 10:36 → SUATTDRO 13:39 → N.4E 14:24
PROVIDERS: ADMIT Family Medicine; ATTEND Hospitalist

== ENCOUNTER 2019-01-25 23:19 | Inpatient (IN) ==
[2019-01-25] MEDS ORDERED: MORPHINE 4 MG/1 ML VIAL IV STA (23:45)
[2019-01-25] MEDS ORDERED: SODIUM CHLORIDE 0.9% 1,000 ML IV STA (23:45)
[2019-01-25] MEDS ORDERED: ONDANSETRON 4 MG/2 ML VIAL IV ONE (23:45)
[2019-01-26 00:44] LABS: Basophils % 0.2 % (0.0-0.8); Eosinophils % 0.2 % (0.00-10.9); Hemoglobin 10.3 GM/DL (12.0-16.0); Immature Granulocytes % 1.4 %; Immature Granulocytes Absolute 0.18 #; Lymphocytes # 1.3 10*3/uL (1.4-4.0); Lymphocytes % 9.7 % (21.3-54.2); Mean Corpuscular HGB Conc 35.5 GM/DL (32-36); Mean Corpuscular Volume 110.3 FL (87-102); Mean Platelet Volume 9.5 FL (9.6-12.0); Monocytes % 8.9 % (1.7-12.7); NRBC # 0.03 10*3/uL; Neutrophils % 79.6 % (38.7-73.9); Platelet Count 222 T/CUMM (130-400); Red Blood Count 2.63 MC/CUMM (3.8-5.5); Red Cell Distribution Width 18.3 % (9.3-17.3); White Blood Count 13.1 T/CUMM (4-12)
[2019-01-26 00:45] LABS: Alanine Aminotransferase < 9 U/L (13-56); Albumin 2.4 G/DL (3.4-5.0); Alkaline Phosphatase 100 U/L (45-117); Aspartate Amino Transferase 12 U/L (0-37); Blood Urea Nitrogen 15 MG/DL (7-18); Calcium 7.3 MG/DL (8.5-10.1); Estimated Glom Filtration Rate 67 ML/MIN; Glucose 119 MG/DL (74-106); Osmolality,Calculated 278.5 MOS/KG (273-304); Total Protein 5.3 G/DL (6.4-8.3)
[2019-01-26 01:08] LABS: Band Neutrophils 4 % (0-10); Lymphocytes 6 % (20-55); Platelet Estimate Normal; Segmented Neutrophils 85 % (50-85); Total Cells Counted 100
[2019-01-26 01:09] LABS: Anisocytosis 1+; Macrocytosis 2+
[2019-01-26 01:10] LABS: Stomatocytes Few; Target Cells Few
[2019-01-26 01:11] LABS: Howell-Jolly Bodies Slight
[2019-01-26] MEDS ORDERED: metroNIDAZOLE INJ 500 MG in PREMIX 1 EACH IV STA ×2 (01:15→02:19)
[2019-01-26] MEDS ORDERED: ONDANSETRON 4 MG/2 ML VIAL IV PRN (01:18)
[2019-01-26] MEDS ORDERED: MORPHINE 4 MG/1 ML VIAL IV PRN (01:18)
[2019-01-26] MEDS: metroNIDAZOLE INJ 500 MG in PREMIX 1 EACH IV SCH ×2 (02:22→10:59)
[2019-01-26] MEDS: DEXT 5% NACL 0.45% KCL 40 MEQ 40 MEQ/1,000 ML BAG IV SCH ×2 (03:51→12:00)
[2019-01-26] MEDS: DEXTROSE 5% NACL 0.45% 1,000 ML IV SCH ×2 (04:00→09:30)
[2019-01-26] MEDS: PIPERACILLIN/TAZOBACTAM 3,375 MG in SODIUM CHLORIDE 0.9% 100 ML IV SCH ×2 (04:20→10:58)
[2019-01-26] MEDS: POTASSIUM CHLORIDE RIDER 10 MEQ in PREMIX 1 EACH IV PRN ×6 (04:20→09:33)
[2019-01-26 04:28] LABS: Basophils % 0.2 % (0.0-0.8); Eosinophils % 0.1 % (0.00-10.9); Hematocrit 29.6 VOL% (35.7-47.0); Hemoglobin 10.4 GM/DL (12.0-16.0); Immature Granulocytes % 0.9 %; Immature Granulocytes Absolute 0.13 #; Lymphocytes # 1.4 10*3/uL (1.4-4.0); Lymphocytes % 9.4 % (21.3-54.2); Mean Corpuscular HGB Conc 35.1 GM/DL (32-36); Mean Corpuscular Volume 110.9 FL (87-102); Mean Platelet Volume 9.6 FL (9.6-12.0); Monocytes % 8.2 % (1.7-12.7); NRBC # 0.03 10*3/uL; Neutrophils % 81.2 % (38.7-73.9); Platelet Count 206 T/CUMM (130-400); Red Blood Count 2.67 MC/CUMM (3.8-5.5); Red Cell Distribution Width 18.4 % (9.3-17.3); White Blood Count 15.1 T/CUMM (4-12)
[2019-01-26 04:42] LABS: Calcium 7.2 MG/DL (8.5-10.1)
[2019-01-26 04:55] LABS: Band Neutrophils 6 % (0-10); Hypochromasia 1+; Lymphocytes 8 % (20-55); Macrocytosis 1+; Segmented Neutrophils 76 % (50-85); Target Cells Slight; Total Cells Counted 100
[2019-01-26 04:56] LABS: Howell-Jolly Bodies Slight
[2019-01-26 04:57] LABS: Platelet Estimate Normal
[2019-01-26] MEDS ORDERED: MAGNESIUM SULF RIDER 4 GM in PREMIX 1 EACH IV PRN (05:04)
[2019-01-26] MEDS ORDERED: MAGNESIUM SULF RIDER 2 GM in PREMIX 1 EACH IV PRN (05:04)
[2019-01-26] MEDS ORDERED: PANTOPRAZOLE 40 MG VIAL IV SCH (09:00)
[2019-01-26] MEDS ORDERED: LORazepam 2 MG/1 ML VIAL IV PRN (11:48)
[2019-01-26] MEDS: MORPHINE 4 MG/1 ML VIAL IV PRN (13:09)
[2019-01-27] MEDS: MORPHINE 4 MG/1 ML VIAL IV PRN ×2 (02:40→11:02)
[2019-01-27 10:58] VITALS: BP 112/66
== END 2019-01-27 11:52 | disposition hospice, home (50) | DRG 394 ==
LOC: EDUNIT# → EDBD → N.ED 23:19 → N.EDINP 01-26 01:17 → SUATTDRO 01-26 01:17 → N.3E 01-26 02:10 → N.ICU 01-26 02:45 → N.4E 01-26 17:08
PROVIDERS: ADMIT Surgery; ATTEND Internal Medicine